=== PATIENT | female | born 1950 | race Caucasian/White ===

== ENCOUNTER → 2017-01-07 | Outpatient (CLI) | payer MEDICARE, OTHER ==
--- NOTE | 2017-01-08 12:43 | MM ---
Reason for exam: screening (asymptomatic). Last mammogram was performed 2 years and 1 month ago. History: Patient is postmenopausal. Excisional biopsy of the right breast, 2007. Benign US left CoreBiopsy of the left breast, October 05, 2004. Benign US right core biopsy of the right breast, October 05, 2004. Taking estrogen for 4 years beginning at age 57. Taking progesterone for 4 years beginning at age 57. Physical Findings: A clinical breast exam by your physician is recommended on an annual basis and results should be correlated with mammographic findings. MG 3D Screening Mammo W/Cad Bilateral CC and MLO view(s) were taken. Prior study comparison: December 19, 2014, bilateral MG screening mammo w CAD. December 07, 2013, bilateral MG screening mammo w CAD. The breast tissue is heterogeneously dense. This may lower the sensitivity of mammography. There is chronic nodularity bilaterally. There is no discrete abnormality. ASSESSMENT: Benign, BI-RAD 2 RECOMMENDATION: Routine screening mammogram of both breasts in 1 year.
== END | disposition home or self-care (01) ==
LOC: RADMAMWWP 07:09
PROVIDERS: ATTEND Obstetrics & Gynecology
DX: Z12.31 Encounter for screening mammogram for malignant neoplasm of breast (principal)
CPT/HCPCS: 77063; G0202

== ENCOUNTER → 2017-04-15 | Outpatient (CLI) | payer MEDICARE, OTHER ==
--- NOTE | 2017-04-15 16:30 | BD ---
EXAMINATION TYPE: MG DEXA axial skeleton. DATE OF EXAM: 04/15/2017 COMPARISON: 02/06/2015 CLINICAL HISTORY: 66-year-old female osteopenia Height: 63.5 IN Weight: 171 LBS FRAX RISK QUESTIONS: Alcohol (3 or more units per day): NO Family History (Parent hip fracture): YES MOTHER Glucocorticoids (More than 3mos): NO (Ex: prednisone, prednisolone, methylprednisolone, dexamethasone, and hydrocortisone). History of Fracture in Adulthood: NO Secondary Osteoporosis: 1. Type 1 Diabetes: NO 2. Hyperthyroidism: NO 3. Menopause before 45: NO AGE 48 4. Malnutrition: NO 5. Chronic liver disease: NO Rheumatoid Arthritis: NO Current Tobacco Use: NO RISK FACTORS HISTORY OF: Active: YES Diet low in dairy products/other sources of calcium: YES Postmenopausal woman: AGE 48 Take estrogen and/or progesterone medications: YES ESTRACE CREAM X 1 YEAR How long: ESTROGEN AGE 45 - 51 MEDICATIONS: Additional Medications: VIT D, BONE SUPPLEMENT CALLED NEW CHAPTER FOR BONE STRENGTH, ESTRACE, ELIQUIS , EXAM MEASUREMENTS: Bone mineral densitometry was performed using the Mood[employer] System. Bone mineral density as measured about the Lumbar spine is: ----- L1-L4(G/cm2): 0.979 T Score Values are as follows: ----- L2: -2.1 ----- L3: -1.4 ----- L4: -1.4 ----- L1-L4: -1.7 Bone mineral density has: Decreased -1.3% since study of: 02/06/2015 Bone mineral density about the R hip (g/cm2): 0.860 Bone mineral density about the L hip (g/cm2): 0.810 T Score values are as follows: -----R Neck: -1.3 -----L Neck: -1.6 -----R Total: -1.5 -----L Total: -1.2 Bone mineral density has: Decreased -3.8% since study of: 02/06/2015 IMPRESSION: Osteopenia (T Score between -2.5 and -1). There is slightly increased risk of fracture and the patient may be considered for treatment. Re-Screen 2-5 years. NOTE: T-SCORE=SD OF THE YOUNG ADULT MEAN.
== END | disposition home or self-care (01) ==
LOC: RADBDWWP 10:30
PROVIDERS: ATTEND Obstetrics & Gynecology
DX: M85.80 Other specified disorders of bone density and structure, unspecified site (principal)
CPT/HCPCS: 77080

== ENCOUNTER → 2018-02-06 | Outpatient (CLI) | payer MEDICARE, OTHER ==
--- NOTE | 2018-02-09 11:38 | MM ---
Reason for exam: screening (asymptomatic). Last mammogram was performed 1 year and 1 month ago. History: Patient is postmenopausal. Excisional biopsy of the right breast, 2007. Benign US left CoreBiopsy of the left breast, October 05, 2004. Benign US right core biopsy of the right breast, October 05, 2004. Taking estrogen for 4 years beginning at age 57. Taking progesterone for 4 years beginning at age 57. Physical Findings: A clinical breast exam by your physician is recommended on an annual basis and results should be correlated with mammographic findings. MG 3D Screening Mammo W/Cad Bilateral CC and MLO view(s) were taken. Prior study comparison: January 07, 2017, bilateral MG 3d screening mammo w/cad. December 19, 2014, bilateral MG screening mammo w CAD. The breast tissue is heterogeneously dense. This may lower the sensitivity of mammography. There is chronic nodularity bilaterally. There is no discrete abnormality. ASSESSMENT: Benign, BI-RAD 2 RECOMMENDATION: Routine screening mammogram of both breasts in 1 year.
== END ==
LOC: RADMAMWWP 12:27
PROVIDERS: ATTEND Obstetrics & Gynecology
DX: Z12.31 Encounter for screening mammogram for malignant neoplasm of breast (principal)
CPT/HCPCS: 77063; 77067

== ENCOUNTER → 2018-10-07 | Outpatient (CLI) | payer MEDICARE, OTHER ==
[2018-10-07 13:06] LABS: HCT 45.3 % (34.0-46.0); MCH 30.1 pg (25.0-35.0); MCHC 30.8 g/dL (31.0-37.0); MCV 97.6 fL (80.0-100.0); Mean Platelet Volume 7.3; Platelet Count 183 k/uL (150-450); RBC 4.64 m/uL (3.80-5.40); WBC 7.1 k/uL (3.8-10.6)
[2018-10-07 13:25] LABS: Potassium 4.7 mmol/L (3.5-5.1)
== END ==
LOC: LABPAT 12:23
PROVIDERS: ATTEND Internal Medicine Interventional Cardiology
DX: Z01.812 Encounter for preprocedural laboratory examination (principal); R06.02 Shortness of breath
CPT/HCPCS: 80051; 82565; 84520; 85027

== ENCOUNTER 2018-10-19 06:10 | Day surgery (SDC) | payer MEDICARE, OTHER ==
[2018-10-14 15:17] VITALS: BMI 30.1
[~2018-10-19 06:10] MED LIST: ALPRAZolam 0.25 MG TAB PO PRN; ALPRAZolam 0.5 MG TAB PO PRN; NITROGLYCERIN SL TABS 0.4 MG TAB SUBLINGUAL PRN; SODIUM CHLORIDE 0.9% 1,000 ML in EMPTY BAG 1 BAG IV ONE
[2018-10-19] MEDS ORDERED: ATORVASTATIN 80 MG TAB PO ONE (07:00)
[2018-10-19] MEDS ORDERED: ASPIRIN 325 MG TAB PO ONE (07:00)
[2018-10-19 07:18] VITALS: TEMP 97.7
[2018-10-19] MEDS: BENZOCAINE SPRAY 1 CAN MUCOUS MEM ONE ×3 (07:30→08:00)
[2018-10-19] MEDS: fentaNYL (PF) 50 MCG/ML 2 ML AMP IVP ONE ×2 (07:44→08:00)
[2018-10-19] MEDS: MIDAZOLAM (PF) 2 MG/2 ML VIAL IVP ONE ×2 (07:44→08:00)
[2018-10-19] MEDS ORDERED: MIDAZOLAM (PF) 2 MG/2 ML VIAL IVP ONE (08:08)
[2018-10-19] MEDS ORDERED: LIDOCAINE 1% INJ 10MG/ML (20 ML MDV) SQ ONE (08:26)
--- NOTE | 2018-10-19 08:40 | ECHOT ---
TRANSESOPHAGEAL ECHOCARDIOGRAM DATE OF SERVICE: October 19, 2018 PERFORMING PHYSICIAN: Aniceto Mack MD PROCEDURE PERFORMED: Transesophageal echocardiogram. INDICATION: Valvular heart disease. COMPLICATION: None. LEVEL OF SEDATION: Moderate with sedation length of 15 minutes. PROCEDURE DESCRIPTION: After obtaining an informed consent, explaining the procedure, benefits, risks, complications and alternatives, the patient was brought to the transesophageal echocardiogram suite. A pulse oximetry and heart rate monitors were attached to the patient prior to the procedure. The patient's throat was sprayed using lidocaine locally. Following that, the patient was turned into left lateral position. A bite guard was placed and the patient was then sedated with the above doses of Versed and fentanyl in divided doses. Following that, the transesophageal echocardiogram probe was advanced through the bite guard into the mid esophagus where 2-D echocardiogram images as well as color Doppler images of various cardiac structures were obtained. We evaluated the interatrial septum using 2-D echocardiogram, color Doppler, and contrast study. The procedure was completed. There were no complications. FINDINGS: Left ventricular dimension and systolic function appeared to be within normal limits. The ejection fraction appeared to be in the range of 55%. The right ventricle appeared to be mildly dilated. The interatrial septum appeared to have what seems to be patent foramen ovale with evidence of [id number] shunt by contrast study as well as by color Doppler. The aortic valve is trileaflet valve without stenosis with moderate insufficiency. The mitral valve seems to be mildly thickened with moderate MR. There was moderate tricuspid regurgitation seen. The left atrial appendage appeared to be free from any thrombus. CONCLUSION: 1. Patent foramen ovale with evidence of [id number] shunt. 2. Intact left atrial appendage without any evidence of thrombus. 3. Normal left ventricular dimension and systolic function. 4. Trileaflet aortic valve without stenosis with moderate insufficiency. 5. Thickened mitral valve leaflets with moderate mitral regurgitation. 6. Moderate tricuspid regurgitation seen. 7. Mildly dilated aortic root. 8. No evidence of pericardial effusion. MMODL / IJN: [id number] /
[2018-10-19] MEDS ORDERED: RX INFO: IV CONTRAST WAS GIVEN 1 EACH MISC MISCELLANE PRN (08:45)
[2018-10-19] MEDS ORDERED: SODIUM CHLORIDE 0.9% 1,000 ML IV SCH (08:45)
[2018-10-19] MEDS ORDERED: IOPAMIDOL-370 100ML BTL INJ ONE (08:52)
--- NOTE | 2018-10-19 09:13 | CC ---
CARDIAC CATHETERIZATION REPORT DATE OF SERVICE: October 19, 2018 PERFORMING PHYSICIAN: Aniceto Mack MD, [employer] ax consultant. PROCEDURE PERFORMED: 1. Right heart catheterization. 2. Left heart catheterization. 3. Selective right and left coronary angiogram. INDICATION: This is a 67-year-old female patient who continues to have shortness of breath with exertion quite concerning for severe underlying coronary artery disease as well as pulmonary hypertension. APPROACH: Right common femoral artery and right common femoral vein. COMPLICATION: None. LEVEL OF SEDATION: Moderate with sedation length of 20 minutes. PROCEDURE DESCRIPTION: After obtaining informed consent, the patient was brought to the cardiac laborer dairy farm. The right common femoral vein was cannulated using micropuncture technique. Then I placed an 8-Latvian sheath. After that, the right common femoral artery was cannulated using micropuncture technique. Then I placed a 6-Latvian sheath. I did right heart catheterization using 6-Latvian swan catheter. After that left heart catheterization was performed using 6-Latvian pigtail catheter. Selective right and left coronary angiogram were performed using JR4 and JL4 catheter. The procedure was completed without any complication. HEMODYNAMICS: 1. Pulmonary capillary wedge pressure was 11 mmHg. 2. PA pressures were as follows, systolic 23, diastolic 16 and mean of 19 mmHg. 3. RV pressures were as follows, systolic 22 and end-diastolic of 10 mmHg. 4. RA pressure is 10 mmHg. 5. LVEDP was 18 mmHg. SELECTIVE CORONARY ANGIOGRAM: 1. Left main is angiographically normal. It bifurcates into the left circumflex and left anterior descending artery. 2. The left anterior descending artery has mild disease only. In the midportion, it gives rise into a large diagonal branch. 3. The left circumflex is a large caliber vessel. It is a nondominant vessel and appeared to be angiographically normal. 4. The RCA is a large caliber vessel. It is a dominant vessel with mild disease only. CONCLUSION: 1. Normal right heart pressures. 2. Mild nonobstructive disease involving the right and left coronary system. POSTPROCEDURE MANAGEMENT: 1. Medical treatment. 2. Follow up with the patient. MMODL / IJN: [id number] /
[2018-10-19 19:27] VITALS: RESP 18
[2018-10-19 19:30] VITALS: BP 140/67; PULSE 57
== END 2018-10-19 14:25 | disposition home or self-care (01) ==
LOC: CATHCVL 06:10
PROVIDERS: ATTEND Internal Medicine Interventional Cardiology
DX: I08.3 Combined rheumatic disorders of mitral, aortic and tricuspid valves (principal); Q21.1 Atrial septal defect; I25.10 Atherosclerotic heart disease of native coronary artery without angina pectoris; I42.8 Other cardiomyopathies; I73.9 Peripheral vascular disease, unspecified; I77.810 Thoracic aortic ectasia; D68.51 Activated protein C resistance; E78.5 Hyperlipidemia, unspecified; I82.403 Acute embolism and thrombosis of unspecified deep veins of lower extremity, bilateral; E78.00 Pure hypercholesterolemia, unspecified; R41.3 Other amnesia; Z79.01 Long term (current) use of anticoagulants; Z79.899 Other long term (current) drug therapy; Z88.0 Allergy status to penicillin; Z88.2 Allergy status to sulfonamides; Z82.49 Family history of ischemic heart disease and other diseases of the circulatory system
CPT/HCPCS: 93312; 93320; 93325; 93460; C1760; C1769 ×3; C1894 ×2; J2001; J3010; Q9967; J2250

== ENCOUNTER → 2018-10-28 | Outpatient (CLI) | payer MEDICARE, OTHER ==
[2018-10-28 13:51] LABS: HCT 42.1 % (34.0-46.0); HGB 13.8 gm/dL (11.4-16.0); MCHC 32.8 g/dL (31.0-37.0); MCV 94.5 fL (80.0-100.0); Mean Platelet Volume 6.9; Platelet Count 212 k/uL (150-450); RBC 4.46 m/uL (3.80-5.40); RDW 13.5 % (11.5-15.5)
[2018-10-28 14:14] LABS: Potassium 4.4 mmol/L (3.5-5.1)
== END | disposition home or self-care (01) ==
LOC: LABPAT 12:49
PROVIDERS: ATTEND Internal Medicine Interventional Cardiology
DX: Z01.812 Encounter for preprocedural laboratory examination (principal); I25.10 Atherosclerotic heart disease of native coronary artery without angina pectoris
CPT/HCPCS: 36415; 80051; 82565; 84520; 85027

== ENCOUNTER 2018-11-15 20:50 | Emergency (ER) | payer MEDICARE, OTHER ==
--- NOTE | 2018-11-15 21:14 | ED ---
Skin/Abscess/FB HPI - General Chief complaint: Skin/Abscess/Foreign Body Stated complaint: FB throat Time Seen by Provider: 11/15/18 20:57 Source: patient Mode of arrival: ambulatory Limitations: no limitations - History of Present Illness Initial comments: 67-year-old female presented for foreign body sensation in throat x 9 hours. Patient states she ate pork turkey and squash around noon today she states that since she is feeling that the prudent back all the way down she states she experienced this sensation after eating meat approximately 8 months and was supposed to have outpatient EGD and further evaluation performed by Dr. Nichols however needed medical clearance from cardiology. Patient states hasnt received surgical clearance. Patient states that after eating the meat, she had difficulty swallowing liquids, denies coughing. States she could feel food in throat. Patient states this persisted for the afternoon and she was spitting up thick phlegm until she pulled in the ER parking lot and she began to feel better. She denies CP, sharp sensation, bone ingestion, SOB, fevers, hemoptysis, bloody vomit or abdominal pain, headache, slurred speech, weakness of UE/LE, diplopia or visual changes, sensation deficits or any other complaints on ROS. Upon history taking patient is tolerating oral secretions, said to be spitting phlegm up in triage. - Related Data Home Medications Medication Instructions Recorded Confirmed Alendronate Sodium [Fosamax] 70 mg PO WEEKLY 10/14/18 11/03/18 Apixaban [Eliquis] 5 mg PO BID 10/14/18 11/03/18 Cholecalciferol (Vitamin D3) 2,000 unit PO DAILY 10/14/18 11/03/18 [Vitamin D3] Metoprolol Shelton/Hydrochlorothiaz 0.5 tab PO BID 10/14/18 11/03/18 [Metoprolol ER-Hctz 25-12.5 mg] Natroal Melatonin 1 tab PO HS PRN 10/14/18 11/03/18 Pravastatin Sodium [Pravachol] 20 mg PO HS 10/14/18 11/03/18 Azithromycin [Zithromax Z-pack] 1 tab PO DIRECTED 11/03/18 11/03/18 Nitrofurantoin Monohyd/M-Cryst 100 mg PO Q12HR 11/09/18 11/09/18 [Macrobid] Allergies Allergy/AdvReac Type Severity Reaction Status Date / Time Penicillins Allergy Dyspnea Verified 11/15/18 20:56 Sulfa (Sulfonamide Allergy Nausea & Verified 11/15/18 20:56 Antibiotics) Vomiting Review of Systems ROS Statement: Those systems with pertinent positive or pertinent negative responses have been documented in the HPI. ROS Other: All systems not noted in ROS Statement are negative. Past Medical History Past Medical History: Blood Disorder, Deep Vein Thrombosis (DVT), Hyperlipidemia Additional Past Medical History / Comment(s): leaky heart valve, states she has one the factor V, recent virus completing z-pac History of Any Multi-Drug Resistant Organisms: None Reported Past Surgical History: Bowel Resection, Joint Replacement Additional Past Surgical History / Comment(s): Rt knee, had a temporary colostomy but it was reversed, nasal surgery Past Anesthesia/Blood Transfusion Reactions: No Reported Reaction Past Psychological History: Anxiety Smoking Status: Never smoker Past Alcohol Use History: Occasional Past Drug Use History: None Reported - Past Family History Brother(s) Family Medical History: Cancer General Exam - General Exam Comments Initial Comments: General: The patient is awake and alert, in no distress, and does not appear acutely ill. Eye: +3 mm pupils are equal, round and reactive to light, extra-ocular movements are intact. No nystagmus. There is normal conjunctiva bilaterally. No signs of icterus. Ears, nose, mouth and throat: There are moist mucous membranes and no oral lesions. Tolerating oral secretions. No tripoding Neck: The neck is supple, there is no tenderness or JVD. Cardiovascular: There is a regular rate and rhythm. No murmur, rub or gallop is appreciated. Respiratory: Lungs are clear to auscultation, respirations are non-labored, breath sounds are equal. No wheezes, stridor, rales, or rhonchi. Gastrointestinal: Soft, non-distended, non-tender abdomen without masses or organomegaly noted. There is no rebound or guarding present. Musculoskeletal: Normal ROM, no tenderness. Strength 5/5. Sensation intact. Riadial pulses equal bilaterally 2+. Neurological: A&O x 3. CN II-XII intact, There are no obvious motor or sensory deficits. Coordination appears grossly intact. Speech is normal. Skin: Skin is warm and dry and no rashes or lesions are noted. Psychiatric: Cooperative, appropriate mood & affect, normal judgment. Limitations: no limitations Course Vital Signs 11/15/18 20:51 Temperature 98.1 F Pulse Rate 62 Respiratory 16 Rate Blood Pressure 148/89 O2 Sat by Pulse 97 Oximetry Medical Decision Making - Medical Decision Making Well-appearing 67-year-old female presented for possible food bolus. Patient's foreign body sensation after eating meat. Patient has experienced this before and is supposed to follow up with general surgery. Patient states she believes she is surgically cleared however needs to confirm this with her middle school counselor Dr. Li. Patient states after she pulled into the emergency department she began to feel better. Patient was provided a carbonated beverage was able to tolerate a full 8 ounces, without any regurgitation or difficulty swallowing. Chest x-ray revealed no acute abnormalities no pneumomediastinum or other abnormal findings. Patient shows no signs of distress tolerating oral secretions, no difficulty swallowing upon reevaluation. I discussed the case in detail with Dr. Hatfield she is agreeable at this time with discharge and general surgical consultation outpatient. Patient was discharged appearing well. - Lab Data Result diagrams: 11/15/18 21:39 11/15/18 21:39 Lab Results 11/15/18 11/15/18 Range/Units 21:39 21:39 WBC 8.4 (3.8-10.6) k/uL RBC 4.64 (3.80-5.40) m/uL Hgb 13.1 (11.4-16.0) gm/dL Hct 43.7 (34.0-46.0) % MCV 94.3 (80.0-100.0) fL MCH 28.1 (25.0-35.0) pg MCHC 29.8 L (31.0-37.0) g/dL RDW 13.7 (11.5-15.5) % Plt Count 183 (150-450) k/uL Neutrophils % 71 % Lymphocytes % 16 % Monocytes % 6 % Eosinophils % 4 % Basophils % 1 % Neutrophils # 6.0 (1.3-7.7) k/uL Lymphocytes # 1.3 (1.0-4.8) k/uL Monocytes # 0.5 (0-1.0) k/uL Eosinophils # 0.3 (0-0.7) k/uL Basophils # 0.1 (0-0.2) k/uL Sodium 140 (137-145) mmol/L Potassium 4.7 (3.5-5.1) mmol/L Chloride 106 (98-107) mmol/L Carbon Dioxide 24 (22-30) mmol/L Anion Gap 10 mmol/L BUN 20 H (7-17) mg/dL Creatinine 0.86 (0.52-1.04) mg/dL Est GFR (CKD-EPI)AfAm 80 (>60 ml/min/1.73 sqM) Est GFR (CKD-EPI)NonAf 70 (>60 ml/min/1.73 sqM) Glucose 102 H (74-99) mg/dL Calcium 10.1 (8.4-10.2) mg/dL Total Bilirubin 1.0 (0.2-1.3) mg/dL AST 27 (14-36) U/L ALT 21 (9-52) U/L Alkaline Phosphatase 69 (38-126) U/L Total Protein 7.6 (6.3-8.2) g/dL Albumin 4.7 (3.5-5.0) g/dL Disposition Clinical Impression: Foreign body sensation in throat Disposition: HOME SELF-CARE Condition: Good Instructions (If sedation given, give patient instructions): Esophageal Foreign Body (ED) Additional Instructions: Please use medication as discussed. Please follow-up with your surgeon in the next 2-3 days. Please return to emergency room if the symptoms increase or worsen or for any other concerns0- inability to swallow, chest pain, inability to tolerate oral secretions (spit).. Is patient prescribed a controlled substance at d/c from ED?: No Referrals: Michael Dorman MD [Primary Care Provider] - 1-2 days Joanne Nichols MD [STAFF PHYSICIAN] - 1-2 days Time of Disposition: 22:52
--- NOTE | 2018-11-15 21:34 | XR ---
EXAMINATION TYPE: XR chest 2V DATE OF EXAM: 11/15/2018 COMPARISON: NONE HISTORY: Food stuck in throat. TECHNIQUE: Frontal and lateral views of the chest are obtained. FINDINGS: There is no heart failure nor confluent pneumonic infiltrate. There is minimal atelectasis at the lung bases. Heart size is normal. Bony thorax is intact. There is osteopenia. IMPRESSION: Lower lobe subsegmental atelectasis. Normal heart.
[2018-11-15 22:02] LABS: Basophils # (A) 0.1 k/uL (0-0.2); Basophils % (A) 1 %; Eosinophils # (A) 0.3 k/uL (0-0.7); Eosinophils % (A) 4 %; HCT 43.7 % (34.0-46.0); HGB 13.1 gm/dL (11.4-16.0); Lymphocytes # (A) 1.3 k/uL (1.0-4.8); Lymphocytes % (A) 16 %; MCH 28.1 pg (25.0-35.0); MCHC 29.8 g/dL (31.0-37.0); MCV 94.3 fL (80.0-100.0); Monocytes # (A) 0.5 k/uL (0-1.0); Monocytes % (A) 6 %; Neutrophils % (A) 71 %; Platelet Count 183 k/uL (150-450); RBC 4.64 m/uL (3.80-5.40); RDW 13.7 % (11.5-15.5); WBC 8.4 k/uL (3.8-10.6)
[2018-11-15 22:14] LABS: Albumin 4.7 g/dL (3.5-5.0); Calcium 10.1 mg/dL (8.4-10.2); Potassium 4.7 mmol/L (3.5-5.1); Total Protein 7.6 g/dL (6.3-8.2)
[2018-11-16 08:50] VITALS: BP 125/93; PULSE 73; RESP 18; TEMP 97.8
== END 2018-11-16 00:07 | disposition home or self-care (01) ==
LOC: EC 20:50
DX: R09.89 Other specified symptoms and signs involving the circulatory and respiratory systems (principal); I38 Endocarditis, valve unspecified; F41.9 Anxiety disorder, unspecified; E78.5 Hyperlipidemia, unspecified; Z79.01 Long term (current) use of anticoagulants; Z79.899 Other long term (current) drug therapy; Z88.0 Allergy status to penicillin; Z88.2 Allergy status to sulfonamides; Z86.718 Personal history of other venous thrombosis and embolism; Z96.651 Presence of right artificial knee joint; Z93.3 Colostomy status
CPT/HCPCS: 36415; 71046; 80053; 85025; 99283

== ENCOUNTER → 2018-12-10 | Outpatient (CLI) | payer MEDICARE, OTHER ==
[2018-12-10 17:38] LABS: HCT 41.9 % (34.0-46.0); HGB 13.8 gm/dL (11.4-16.0); MCH 31.7 pg (25.0-35.0); MCV 95.9 fL (80.0-100.0); Mean Platelet Volume 6.6; Platelet Count 217 k/uL (150-450); RBC 4.37 m/uL (3.80-5.40); RDW 13.4 % (11.5-15.5); WBC 8.5 k/uL (3.8-10.6)
[2018-12-10 17:44] LABS: Potassium 4.8 mmol/L (3.5-5.1)
== END | disposition home or self-care (01) ==
LOC: LABPAT 16:24
PROVIDERS: ATTEND Internal Medicine Interventional Cardiology
DX: Z01.812 Encounter for preprocedural laboratory examination (principal); I34.0 Nonrheumatic mitral (valve) insufficiency
CPT/HCPCS: 80051; 80061; 82565; 84520; 85027

== ENCOUNTER 2018-12-18 09:25 | Day surgery (SDC) | payer MEDICARE, OTHER ==
[~2018-12-18 09:25] MED LIST changes: +ASPIRIN 325 MG TAB PO STA; +ATORVASTATIN 80 MG TAB PO STA; +CLINDAMYCIN 300 MG in DEXTROSE 5% IN WATER 50 ML IVPB ONE
[2018-12-18] MEDS ORDERED: LIDOCAINE 1% INJ 10MG/ML (20 ML MDV) ONE (11:42)
[2018-12-18] MEDS ORDERED: MIDAZOLAM 2 MG/2 ML VIAL IV ONE ×2 (12:05→12:31)
[2018-12-18] MEDS ORDERED: LIDOCAINE 1% INJ 10MG/ML (20 ML MDV) SQ ONE (12:06)
[2018-12-18] MEDS ORDERED: fentaNYL (PF) 50 MCG/ML 2 ML AMP ONE (12:14)
[2018-12-18] MEDS ORDERED: fentaNYL (PF) 50 MCG/ML 2 ML AMP IV ONE ×2 (12:16)
[2018-12-18] MEDS ORDERED: HEPARIN SODIUM 1,000 UN/ML (10ML VL) ONE (12:19)
[2018-12-18] MEDS ORDERED: HEPARIN SODIUM 1,000 UN/ML (10ML VL) IV ONE (12:20)
[2018-12-18] MEDS ORDERED: IOPAMIDOL-370 50ML BTL INJ ONE (12:44)
--- NOTE | 2018-12-18 13:58 | P.PCN ---
Date of Procedure: 12/18/18 Operative Findings: PATENT FORAMEN OVALE (PFO) CLOSURE PROCEDURE Performing physician Aniceto Mack M.D. Procedure performed 1. Intracardiac echocardiogram imaging 2. Successful percutaneous closure of patent foramen ovale using 25 mm Amplatzer PFO occluder with an excellent results and without any residual shunt 3. Right atrial angiogram Indication This is a pleasant 68-year-old female patient with known history of factor V Leiden with multiple DVT as well as possible TIA/CVA in the past was found recently to have a patent foramen ovale with bidirectional shunt. The patient would like to be a full to be closed and because of that she was scheduled today to undergo the procedure. Complication None Level of sedation Moderate sedation of 46 minutes Approach Right femoral vein Procedure description After obtaining an informed consent the patient was brought to the cardiac research laboratory specialist. The right common femoral vein was cannulated 2 using micropuncture needle, the micropuncture wire passed easily then I placed two 8-Danish sheath in the right common femoral vein. At that point anticoagulation was initiated using heparin and the patient was given a weight-based heparin with ACT monitoring. Subsequently the intracardiac echocardiogram probe was advanced through the venous sheath under fluoroscopy guidance to the right atrium were I did interrogation of the interatrial septum with multiple views using 2-D echocardiogram images as well as color Doppler images. We identified the patent foramen ovale and we decided to pursue with an Amplatzer PFO without 25 mm. Subsequently the PFO was crossed using an 035 wire which was advanced to the left upper pulmonary vein. Subsequently I did exchange the wire into a stiff wire using 035 multipurpose catheter. At that point I did exchange my short 11 cm 8-Danish sheath into the delivery sheath which was crossed the interatrial septum under fluoroscopy guidance as well as under intracardiac echocardiogram images. After that the dilator and the wire were removed. Subsequently advanced 25 mm Amplatzer PFO occluder which was loaded into the sheath under continuous saline injection to make sure there is no bubble. The device was advanced all the way under fluoroscopy guidance where initially I deployed the left atrial occluder and subsequently I pulled back against the interatrial septum then I deployed the right atrial occluder. After making sure that the device position was good and there is no pinch on the SVC I decided to release the device. Subsequently I released the device under fluoroscopy guidance. I interrogated the device again which showed no residual shunt under color flow with intracardiac echocardiogram. After that I did do right atrial angiogram with the IRISH cranial view. Subsequently I did exchange the long delivery sheath into short sheath. The procedure was completed without any complications Plan An echocardiogram later on today and tomorrow Dual antiplatelet therapy Risk factors modifications Follow-up with the patient
[2018-12-18] MEDS ORDERED: SODIUM CHLORIDE 0.9% 1,000 ML IV SCH (14:00)
[2018-12-18 15:16] VITALS: RESP 16
[2018-12-19 04:33] VITALS: TEMP 98.1
[2018-12-19 06:36] LABS: Basophils # (A) 0.1 k/uL (0-0.2); Basophils % (A) 2 %; Eosinophils # (A) 0.3 k/uL (0-0.7); Eosinophils % (A) 6 %; HCT 41.1 % (34.0-46.0); HGB 13.2 gm/dL (11.4-16.0); Lymphocytes % (A) 16 %; MCH 30.7 pg (25.0-35.0); MCHC 32.2 g/dL (31.0-37.0); MCV 95.5 fL (80.0-100.0); Mean Platelet Volume 6.6; Monocytes # (A) 0.5 k/uL (0-1.0); Monocytes % (A) 8 %; Neutrophils # (A) 4.1 k/uL (1.3-7.7); Neutrophils % (A) 66 %; Platelet Count 167 k/uL (150-450); RDW 13.2 % (11.5-15.5); WBC 6.2 k/uL (3.8-10.6)
--- NOTE | 2018-12-19 06:44 | XR ---
EXAMINATION TYPE: XR chest 2V DATE OF EXAM: 12/19/2018 HISTORY: ASD/PFO placement. REFERENCE: Previous study dated 11/15/2018. FINDINGS: Lung volumes are prominent. Heart size upper limits of normal. There is some scarring or at electasis at the left lung base. There are metallic leads projecting over the lower dorsal spine. Ple ural spaces are clear. IMPRESSION: 1. LEADS PROJECT OVER THE T9 VERTEBRAL BODY. 2. SCARRING VERSUS ATELECTASIS, LEFT LUNG BASE. 3. COPD.
[2018-12-19 06:46] LABS: African American GFR (CKD) >90 (>60 ml/min/1.73 sqM); Anion Gap 3 mmol/L; Blood Urea Nitrogen 12 mg/dL (7-17); Calcium 9.2 mg/dL (8.4-10.2); Carbon Dioxide 26 mmol/L (22-30); Chloride 108 mmol/L (98-107); Glucose 88 mg/dL (74-99); Potassium 4.6 mmol/L (3.5-5.1); Sodium 137 mmol/L (137-145)
[2018-12-19 08:09] VITALS: BP 122/82; PULSE 64
[2018-12-19] MEDS ORDERED: ASPIRIN 325 MG TAB PO SCH (09:00)
[2018-12-19] MEDS ORDERED: CLOPIDOGREL 75 MG TAB PO SCH (09:00)
--- NOTE | 2018-12-19 09:09 | P.DS ---
Providers Date of admission: December 182018 Attending physician: Aniceto Mack Primary care physician: Michael Angulo [facility] Course: This is a pleasant 69-year-old female patient with history of factor V Leiden currently she is on oral anticoagulation was found to have patent foramen ovale on recent echocardiogram. She underwent yesterday successful percutaneous closure of patent foramen ovale using 25 mm Amplatzer PFO occluder with an excellent results by the end and without any residual shunt. On follow-up with her today, she is doing good and she is asymptomatic. The right groin is soft and nontender and without any bruises. The patient is going to be discharged on low-dose Eliquis along with small dose aspirin along with Plavix 75 mg by mouth daily. She will be on Plavix for only 4 weeks and then she will be on aspirin for only 6 months. I will follow-up with the patient next week in the office with an echocardiogram. Plan - Discharge Summary Discharge Rx Participant: No New Discharge Prescriptions: New Clopidogrel [Plavix] 75 mg PO DAILY #90 tab Aspirin 81 mg PO DAILY #90 tab Continue Metoprolol Shelton/Hydrochlorothiaz [Metoprolol ER-Hctz 25-12.5 mg] 0.5 tab PO BID Cholecalciferol (Vitamin D3) [Vitamin D3] 2,000 unit PO DAILY Pravastatin Sodium [Pravachol] 20 mg PO HS Natroal Melatonin 1 tab PO HS PRN PRN Reason: Insomnia Cetirizine HCl [Zyrtec] 10 mg PO DAILY PRN PRN Reason: Allergy Symptoms Acetaminophen [Tylenol] 325 - 650 mg PO Q6H PRN PRN Reason: Pain Changed Apixaban [Eliquis] 2.5 mg PO BID #0 Discharge Medication List Cholecalciferol (Vitamin D3) [Vitamin D3] 2,000 unit PO DAILY 10/14/18 [History] Metoprolol Shelton/Hydrochlorothiaz [Metoprolol ER-Hctz 25-12.5 mg] 0.5 tab PO BID 10/14/18 [History] Natroal Melatonin 1 tab PO HS PRN 10/14/18 [History] Pravastatin Sodium [Pravachol] 20 mg PO HS 10/14/18 [History] Acetaminophen [Tylenol] 325 - 650 mg PO Q6H PRN 12/14/18 [History] Cetirizine HCl [Zyrtec] 10 mg PO DAILY PRN 12/14/18 [History] Clopidogrel [Plavix] 75 mg PO DAILY #90 tab 12/18/18 [Rx] Apixaban [Eliquis] 2.5 mg PO BID #0 12/19/18 [Rx] Aspirin 81 mg PO DAILY #90 tab 12/19/18 [Rx] Follow up Appointment(s)/Referral(s): Aniceto Mack MD [STAFF PHYSICIAN] - 12/25/18 4:15 pm (1 Week Visit: 12/25 at 4:15pm 1 Month Visit: 01/19 at 2:45pm 6 Month Visit: 06/20 at 1:45pm 1 Year Visit: 12/19 at 1:30pm) Patient Instructions/Handouts: Transcatheter Closure of Patent Ductus Arteriosus in Children (DC)
--- NOTE | 2018-12-20 12:39 | ECHOF ---
Referral Reason:Post ASD/PFO Insertion MEASUREMENTS -------- HEIGHT: 160.0 cm WEIGHT: 78.0 kg BP: RVIDd: 3.7 cm (< 3.3) IVSd: 1.0 cm (0.6 - 1.1) LVIDd: 3.8 cm (3.9 - 5.3) LVPWd: 1.0 cm (0.6 - 1.1) IVSs: 1.4 cm LVIDs: 2.7 cm LVPWs: 1.3 cm LA Diam: 2.8 cm (2.7 - 3.8) LAESV Index (A-L): 16.78 ml/m Ao Diam: 3.0 cm (2.0 - 3.7) AV Cusp: 2.0 cm (1.5 - 2.6) LA Diam: 3.2 cm (2.7 - 3.8) MV EXCURSION: 18.395 mm (> 18.000) MV EF SLOPE: 65 mm/s (70 - 150) EPSS: 0.3 cm MV E Alberto: 0.56 m/s MV DecT: 205 ms MV A Alberto: 0.69 m/s MV E/A Ratio: 0.82 AR PHT: 570 ms RAP: 5.00 mmHg RVSP: 35.43 mmHg FINDINGS -------- Sinus rhythm. This was a technically good study. LV size, wall thickness and systolic function are normal, with an EF greater than 55%. The left marcy tricular size is normal. The right ventricle is normal in size. The left atrial size is normal. The right atrial size is normal. Pt had PFO closure 12/18/18. There is mild aortic valve sclerosis. There is mild aortic regurgitation. Mild mitral annular calcification present. Mild mitral regurgitation is present. No regurgitation noted Right ventricular systolic pressure is normal at < 35 mmHg. There is mild pulmonary hypertension. There is no pulmonic regurgitation present. The aortic root size is normal. There is no pericardial effusion. CONCLUSIONS -------- 1. Sinus rhythm. 2. This was a technically good study. 3. LV size, wall thickness and systolic function are normal, with an EF greater than 55%. 4. The left ventricular size is normal. 5. The right ventricle is normal in size. 6. The left atrial size is normal. 7. The right atrial size is normal. 8. Pt had PFO closure 12/18/18. 9. There is mild aortic valve sclerosis. 10. Mild mitral annular calcification present. 11. Mild mitral regurgitation is present. 12. No regurgitation noted 13. Right ventricular systolic pressure is normal at < 35 mmHg. 14. There is mild pulmonary hypertension. 15. There is no pulmonic regurgitation present. 16. The aortic root size is normal. 17. There is no pericardial effusion. RN X RAY: Parvin Askew RDCS
== END 2018-12-19 11:47 | disposition home or self-care (01) ==
LOC: CATHCVL 09:25 → 3SCARD 17:12 → CATHCVL 12-19 11:47
PROVIDERS: ATTEND Internal Medicine Interventional Cardiology
DX: Q21.1 Atrial septal defect (principal); I73.9 Peripheral vascular disease, unspecified; D68.51 Activated protein C resistance; Z86.718 Personal history of other venous thrombosis and embolism; I08.0 Rheumatic disorders of both mitral and aortic valves; Z79.01 Long term (current) use of anticoagulants; Z79.899 Other long term (current) drug therapy; Z88.2 Allergy status to sulfonamides
CPT/HCPCS: 93306; 93581; 93662; 85347; 86900; 86901; 80048; 85025; 86850; 71046; C1769 ×6; C1894; C1817; C1759; J2250; J2001; J3010; J1644; Q9967; 93580

== ENCOUNTER → 2019-03-18 | Day surgery (SDC) | payer MEDICARE, OTHER ==
--- NOTE | 2019-03-17 17:51 | P.GSHP ---
History of Present Illness H&P Date: 03/18/19 CHIEF COMPLAINT: GERD HISTORY OF PRESENT ILLNESS: The patient is a 68-year-old female who presents reports gastroesophageal reflux disease. Upper endoscopy was offered for further evaluation and management. PAST MEDICAL HISTORY: Please see list. PAST SURGICAL HISTORY: Please see list. MEDICATIONS: Please see list. ALLERGIES: Please see list. SOCIAL HISTORY: No illicit drug use FAMILY HISTORY: No reports of Crohn disease or ulcerative colitis. REVIEW OF ORGAN SYSTEMS: CONSTITUTIONAL: No reports of fevers or chills. GI: Denies any blood in stools or constipation. PHYSICAL EXAM: VITAL SIGNS: Stable GENERAL: Well-developed and pleasant in no acute distress. HEENT: No scleral icterus. Extraocular movements grossly intact. Moist buccal mucosa. NECK: Supple without lymphadenopathy. CHEST: Unlabored respirations. Equal bilateral excursions. CARDIOVASCULAR: Regular rate and rhythm. Distal 2+ pulses. ABDOMEN: Soft, nondistended. MUSCULOSKELETAL: No clubbing, cyanosis, or edema. ASSESSMENT: 1. Gastroesophageal reflux disease PLAN: 1. Recommend proceeding with an upper endoscopy Past Medical History Past Medical History: Blood Disorder, Deep Vein Thrombosis (DVT), Hyperlipidemia Additional Past Medical History / Comment(s): states having occasional difficulty swallowing, states does not have HTN, states leaky heart valve, states she has one ? gene of the factor V. History of Any Multi-Drug Resistant Organisms: None Reported Past Surgical History: Bowel Resection, Heart Catheterization, Joint Replacement Additional Past Surgical History / Comment(s): HEART CATH IN OCT 2018. RIGHT TOTAL KNEE had a temporary colostomy but it was reversed, nasal surgery, PFO by Dr Rueda 12/18/18 Past Anesthesia/Blood Transfusion Reactions: No Reported Reaction Smoking Status: Never smoker - Past Family History Brother(s) Family Medical History: Cancer Medications and Allergies Home Medications Medication Instructions Recorded Confirmed Type Cholecalciferol (Vitamin D3) 2,000 unit PO DAILY 10/14/18 03/16/19 History [Vitamin D3] Natroal Melatonin 1 tab PO HS PRN 10/14/18 03/16/19 History Pravastatin Sodium [Pravachol] 20 mg PO HS 10/14/18 03/16/19 History Cetirizine HCl [Zyrtec] 10 mg PO DAILY PRN 12/14/18 03/16/19 History Apixaban [Eliquis] 2.5 mg PO BID #0 12/19/18 03/16/19 Rx Aspirin 81 mg PO DAILY #90 tab 12/19/18 03/16/19 Rx Hydrochlorothiazide 0.5 tab PO BID 03/16/19 03/16/19 History Metoprolol Succinate [Toprol XL] 0.5 tab PO BID 03/16/19 03/16/19 History Allergies Allergy/AdvReac Type Severity Reaction Status Date / Time Penicillins Allergy Dyspnea Verified 03/16/19 11:42 Sulfa (Sulfonamide AdvReac Nausea & Verified 03/16/19 11:42 Antibiotics) Vomiting
[~2019-03-18] MED LIST changes: -ALPRAZolam 0.25 MG TAB PO PRN; -ALPRAZolam 0.5 MG TAB PO PRN; -ASPIRIN 325 MG TAB PO STA; -ATORVASTATIN 80 MG TAB PO STA; -CLINDAMYCIN 300 MG in DEXTROSE 5% IN WATER 50 ML IVPB ONE; +LACTATED RINGERS 1,000 ML IV SCH; +LIDOCAINE 1% 20 ML VIAL (10MG/ML) FOR IV START INTRADERMA PRN; +LIDOCAINE 1% INJ 10MG/ML (20 ML MDV) ONE; -NITROGLYCERIN SL TABS 0.4 MG TAB SUBLINGUAL PRN; +PROPOFOL 10 MG/ML 20 ML VIAL IV ONE; -SODIUM CHLORIDE 0.9% 1,000 ML in EMPTY BAG 1 BAG IV ONE
[2019-03-18 08:58] VITALS: RESP 16; TEMP 97.4
--- NOTE | 2019-03-18 09:48 | P.PCN ---
Date of Procedure: 03/18/19 Description of Procedure: PREOPERATIVE DIAGNOSIS: Gastroesophageal reflux disease. Dysphagia POSTOPERATIVE DIAGNOSIS: Gastroesophageal reflux disease. Diaphragmatic hiatal hernia Esophageal stricture, distal esophagus. Dysphagia Gastritis OPERATION: Esophagogastroduodenoscopy with ballon esophageal dilation, 15 mm Esophagogastroduodenoscopy with biopsies along antrum SURGEON: Joanne Nichols MD ANESTHESIA: MAC. INDICATIONS: The patient is a 68-year-old male who presents with a history of reflux disease and dysphagia. Benefits and risks of the procedure were described. Informed consent was obtained. DESCRIPTION: The patient was brought into the endoscopy suite and laid in the left lateral decubitus position. A Olympus gastroscope was carefully passed along the posGastric polyps were found. The scope was passed to the duodenum which was unremarkable up to the third portion. Retroflexion of the scope confirmed Hill grade 4 lower esophageal valve with a Hill grade 4, lower esophageal valve identified. Cold forceps biopsies were obtained along antrum for gastritis. A 6 cm hiatal hernia was confirmed. LA grade C erosive esophagitis was found. A [employer] 15 mm balloon was inserted along the scope into the distal esophagus where a tight stricture 9 mm was identified. Balloon was dilated for up to 1 minute. No full-thickness injury was found along the mucosa. The stomach was desufflated. The patient tolerated the procedure well. FINDINGS: Diaphragmatic hiatal hernia 6 cm. Squamocolumnar junction 34 cm from the incisors Diaphragmatic hiatus 40 cm from the incisors Balloon dilation 15 mm for 9 mm distal esophageal stricture Hill grade 4 lower esophageal valve. LA grade C erosive esophagitis. No active duodenitis. Chronic gastritis RECOMMENDATIONS: Proton pump inhibitor 1 month treatment Repeat upper endoscopy one month Recommend repair of large diaphragmatic hiatal hernia Plan - Discharge Summary Discharge Rx Participant: No New Discharge Prescriptions: New Omeprazole [PriLOSEC] 40 mg PO DAILY #30 cap No Action Cholecalciferol (Vitamin D3) [Vitamin D3] 2,000 unit PO DAILY Pravastatin Sodium [Pravachol] 20 mg PO HS Natroal Melatonin 1 tab PO HS PRN PRN Reason: Insomnia Cetirizine HCl [Zyrtec] 10 mg PO DAILY PRN PRN Reason: Allergy Symptoms Aspirin 81 mg PO DAILY #90 tab Apixaban [Eliquis] 2.5 mg PO BID #0 Metoprolol Succinate [Toprol XL] 0.5 tab PO BID Hydrochlorothiazide 0.5 tab PO BID Discharge Medication List Cholecalciferol (Vitamin D3) [Vitamin D3] 2,000 unit PO DAILY 10/14/18 [History] Natroal Melatonin 1 tab PO HS PRN 10/14/18 [History] Pravastatin Sodium [Pravachol] 20 mg PO HS 10/14/18 [History] Cetirizine HCl [Zyrtec] 10 mg PO DAILY PRN 12/14/18 [History] Apixaban [Eliquis] 2.5 mg PO BID #0 12/19/18 [Rx] Aspirin 81 mg PO DAILY #90 tab 12/19/18 [Rx] Hydrochlorothiazide 0.5 tab PO BID 03/16/19 [History] Metoprolol Succinate [Toprol XL] 0.5 tab PO BID 03/16/19 [History] Omeprazole [PriLOSEC] 40 mg PO DAILY #30 cap 03/18/19 [Rx] Follow up Appointment(s)/Referral(s): Joanne Nichols MD [STAFF PHYSICIAN] - 03/30/19 Patient Instructions/Handouts: Esophageal Dilation (DC), Hiatal Hernia (DC) Activity/Diet/Wound Care/Special Instructions: liquid diet today. START ELIQUIS 03/22/19 Discharge Disposition: HOME SELF-CARE
[2019-03-18 10:09] VITALS: BP 126/78; PULSE 57
== END | disposition home or self-care (01) ==
LOC: ORWHC2ENDO 08:40
PROVIDERS: ATTEND Surgery Plastic and Reconstructive Surgery
DX: K22.2 Esophageal obstruction (principal); K29.50 Unspecified chronic gastritis without bleeding; K21.0 Gastro-esophageal reflux disease with esophagitis; K22.10 Ulcer of esophagus without bleeding; K44.9 Diaphragmatic hernia without obstruction or gangrene; I10 Essential (primary) hypertension; Z79.82 Long term (current) use of aspirin; Z79.01 Long term (current) use of anticoagulants; Z79.899 Other long term (current) drug therapy; Z88.0 Allergy status to penicillin; Z88.2 Allergy status to sulfonamides; Z90.49 Acquired absence of other specified parts of digestive tract; Z86.718 Personal history of other venous thrombosis and embolism; Z96.651 Presence of right artificial knee joint; Z91.018 Allergy to other foods; Z80.9 Family history of malignant neoplasm, unspecified
CPT/HCPCS: 88305; 43239; 43249; J2001; J2704; C1726

== ENCOUNTER → 2019-05-06 | Outpatient (CLI) | payer MEDICARE, OTHER ==
--- NOTE | 2019-05-06 10:09 | FL ---
EXAMINATION TYPE: FL barium swallow DATE OF EXAM: 05/06/2019 CLINICAL HISTORY: Esophageal obstruction. Known hiatal hernia. Recent stricture dilatation. TECHNIQUE: A double contrast esophagram is performed utilizing air and barium. A total of 1.25 daniella nancy of fluoroscopic time was utilized during procedure. 45 fluoroscopic images were saved. COMPARISON: None FINDINGS: The proximal and mid esophagus shows normal motility however there is delayed emptying in t he stomach from the distal esophagus due to a [id number] hiatal hernia. No evidence of strict ure noted. Mild gastroesophageal reflux was seen during real time performance of this study from the hiatal hernia. IMPRESSION: 1. Small moderate hiatal hernia resulting in mild degree gastroesophageal reflux and delayed passage of contrast from the distal esophagus into the hiatal hernia. 2. No evidence of recurrent stricture.
== END | disposition home or self-care (01) ==
LOC: RADUSWWP 07:45
PROVIDERS: ATTEND Surgery Plastic and Reconstructive Surgery
DX: K21.9 Gastro-esophageal reflux disease without esophagitis (principal); K44.9 Diaphragmatic hernia without obstruction or gangrene; Z88.0 Allergy status to penicillin; Z88.2 Allergy status to sulfonamides; Z91.018 Allergy to other foods
CPT/HCPCS: 74220

== ENCOUNTER 2019-09-03 09:02 | Observation (INO) | payer MEDICARE, OTHER ==
--- NOTE | 2019-09-03 06:28 | P.GSHP ---
History of Present Illness H&P Date: 09/03/19 CHIEF COMPLAINT: Paraesophageal hiatal hernia with gastroesophageal reflux disease. HISTORY OF PRESENT ILLNESS: The patient is a 68-year-old female who presents with paraesophageal hiatal hernia. She has completed an esophageal manometry including upper endoscopy workup. Now she presents for surgical intervention. PAST MEDICAL HISTORY: Please see list. PAST SURGICAL HISTORY: Please see list. MEDICATIONS: Please see list. ALLERGIES: Please see list. SOCIAL HISTORY: No illicit drug use FAMILY HISTORY: No reports of Crohn disease or ulcerative colitis. REVIEW OF ORGAN SYSTEMS: CONSTITUTIONAL: No reports of fevers or chills. GI: Denies any blood in stools or constipation. PHYSICAL EXAM: VITAL SIGNS: Stable GENERAL: Well-developed pleasant and in no acute distress. HEENT: No scleral icterus. Extraocular movements grossly intact. Moist buccal mucosa. NECK: Supple without lymphadenopathy. CHEST: Unlabored respirations. Equal bilateral excursions. CARDIOVASCULAR: Regular rate and rhythm. Distal 2+ pulses. ABDOMEN: Soft, nondistended. No peritoneal signs. MUSCULOSKELETAL: No clubbing, cyanosis, or edema. SKIN: Well-perfused. Good skin turgor. MANOMETRY: Shows no evidence of achalasia or scleroderma. ASSESSMENT: 1. Diaphragmatic paraesophageal hiatal hernia with severe gastroesophageal reflux disease. PLAN: 1. Recommend proceeding with a robotic paraesophageal hiatal hernia with possible mesh. 2. Benefits and risks of surgical intervention was discussed including possibility of open technique. 3. Inpatient hospitalization recommended of 2 nights 4. DVT prophylaxis. 5. Antibiotic prophylaxis. 6. She has also completed a very low caloric high-protein diet to address underlying hepatomegaly. Past Medical History Past Medical History: Blood Disorder, Deep Vein Thrombosis (DVT), Hyperlipidemia Additional Past Medical History / Comment(s): states does not have HTN, states leaky heart valve, states she "has one ? gene of the Leiden factor V" seasonal allergies History of Any Multi-Drug Resistant Organisms: None Reported Past Surgical History: Bowel Resection, Heart Catheterization, Joint Replacement Additional Past Surgical History / Comment(s): HEART CATH IN OCT 2018. RIGHT TOTAL KNEE, has had EGD with dilation, had a temporary colostomy but it was reversed, nasal surgery, ?mari filter, PFO by Dr Rueda 12/18/18 Past Anesthesia/Blood Transfusion Reactions: No Reported Reaction Smoking Status: Never smoker - Past Family History Brother(s) Family Medical History: Cancer Medications and Allergies Home Medications Medication Instructions Recorded Confirmed Type Cholecalciferol (Vitamin D3) 2,000 unit PO DAILY 10/14/18 08/30/19 History [Vitamin D3] Pravastatin Sodium [Pravachol] 20 mg PO HS 10/14/18 08/30/19 History Cetirizine HCl [Zyrtec] 10 mg PO DAILY PRN 12/14/18 08/30/19 History Apixaban [Eliquis] 2.5 mg PO BID #0 12/19/18 08/30/19 Rx Metoprolol Succinate [Toprol XL] 12.5 mg PO BID 03/16/19 08/30/19 History Omeprazole [PriLOSEC] 40 mg PO DAILY #30 cap 03/18/19 08/30/19 Rx Apixaban [Eliquis] 5 mg PO BID 08/30/19 08/30/19 History Fexofenadine HCl [Jory Allergy] 180 mg PO DAILY PRN 08/30/19 08/30/19 History diphenhydrAMINE [Benadryl] 25 mg PO BID PRN 08/30/19 08/30/19 History Allergies Allergy/AdvReac Type Severity Reaction Status Date / Time Penicillins Allergy Unknown Verified 08/30/19 15:28 Sulfa (Sulfonamide AdvReac Nausea & Verified 08/30/19 15:28 Antibiotics) Vomiting
[~2019-09-03 09:02] MED LIST changes: +ACETAMINOPHEN TAB 500 MG TAB PO STA; +CHLORHEXIDINE GLUCONATE 15 ML CUP MUCOUS MEM ONE; +GABAPENTIN 300 MG CAP PO STA; +HEPARIN SODIUM,PORCINE 5,000 UNIT/ML 1 ML VIAL SQ ONE; -LACTATED RINGERS 1,000 ML IV SCH; -LIDOCAINE 1% 20 ML VIAL (10MG/ML) FOR IV START INTRADERMA PRN; -LIDOCAINE 1% INJ 10MG/ML (20 ML MDV) ONE; -PROPOFOL 10 MG/ML 20 ML VIAL IV ONE; +TAMSULOSIN 0.4 MG CAP.ER.24H PO ONE
[2019-09-03] MEDS ORDERED: HYDROmorphone 0.5 MG/0.5 ML SYRINGE IVP PRN (09:26)
[2019-09-03] MEDS ORDERED: fentaNYL (PF) 50 MCG/ML 2 ML AMP IV PRN (09:26)
[2019-09-03] MEDS ORDERED: MIDAZOLAM 2 MG/2 ML VIAL IV PRN (09:26)
[2019-09-03] MEDS ORDERED: LIDOCAINE 1% (10MG/ML) FOR IV START INTRADERMA PRN (09:26)
[2019-09-03] MEDS ORDERED: LACTATED RINGERS 1,000 ML IV SCH (09:26)
[2019-09-03] MEDS ORDERED: ONDANSETRON 4 MG/2 ML VIAL ONE (09:50)
[2019-09-03] MEDS ORDERED: ACETAMINOPHEN TAB 500 MG TAB ONE (09:50)
[2019-09-03 10:08] LABS: Basophils # (A) 0.1 k/uL (0-0.2); Basophils % (A) 1 %; Eosinophils # (A) 0.5 k/uL (0-0.7); Eosinophils % (A) 8 %; HCT 45.3 % (34.0-46.0); HGB 14.5 gm/dL (11.4-16.0); Lymphocytes # (A) 1.1 k/uL (1.0-4.8); Lymphocytes % (A) 18 %; MCH 30.5 pg (25.0-35.0); MCHC 32.1 g/dL (31.0-37.0); Mean Platelet Volume 7.8; Monocytes # (A) 0.5 k/uL (0-1.0); Monocytes % (A) 8 %; Neutrophils % (A) 63 %; Platelet Count 246 k/uL (150-450); RBC 4.77 m/uL (3.80-5.40); RDW 13.5 % (11.5-15.5); WBC 6.4 k/uL (3.8-10.6)
[2019-09-03] MEDS ORDERED: MIDAZOLAM 2 MG/2 ML VIAL IV ONE (10:11)
[2019-09-03 10:20] LABS: ALT 16 U/L (4-34); AST 31 U/L (14-36); African American GFR (CKD) >90 (>60 ml/min/1.73 sqM); Albumin 4.6 g/dL (3.5-5.0); Alkaline Phosphatase 53 U/L (38-126); Anion Gap 7 mmol/L; Blood Urea Nitrogen 21 mg/dL (7-17); Calcium 9.8 mg/dL (8.4-10.2); Carbon Dioxide 30 mmol/L (22-30); Chloride 102 mmol/L (98-107); Glucose 85 mg/dL (74-99); Non-African American GFR(CKD) 88 (>60 ml/min/1.73 sqM); Potassium 3.7 mmol/L (3.5-5.1); Sodium 139 mmol/L (137-145); Total Protein 7.2 g/dL (6.3-8.2)
[2019-09-03] MEDS: PANTOPRAZOLE 40 MG/10 ML VIAL IV ONE ×2 (10:25→10:31)
[2019-09-03] MEDS ORDERED: DEXAMETHASONE SOD PHOSPHATE 10 MG/ML 1 ML VIAL IV ONE (10:25)
[2019-09-03] MEDS ORDERED: LIDOCAINE 1% INJ 10MG/ML (20 ML MDV) ONE (10:30)
[2019-09-03] MEDS ORDERED: fentaNYL (PF) 50 MCG/ML 2 ML AMP ONE (10:30)
[2019-09-03] MEDS ORDERED: PROPOFOL 10 MG/ML 20 ML VIAL IV ONE (10:30)
[2019-09-03] MEDS ORDERED: ROPIVACAINE 5 MG/ML 30 ML VIAL ONE (10:30)
[2019-09-03] MEDS ORDERED: ROCURONIUM BROMIDE 10 MG/ML 5 ML VIAL IV ONE (10:30)
[2019-09-03] MEDS ORDERED: ePHEDrine SULFATE/0.9% NACL/PF 50 MG/5 ML SYRINGE IV ONE (10:30)
[2019-09-03] MEDS ORDERED: NEOSTIGMINE 1 MG/ML 10 ML VIAL ONE (10:30)
[2019-09-03] MEDS ORDERED: GLYCOPYRROLATE 0.2 MG/ML 2 ML VIAL ONE (10:30)
--- NOTE | 2019-09-03 10:49 | P.ANPRN ---
Procedure Note - Anesthesia - Nerve Block Performed Bilateral Transversus Abdominis Single Time Out Performed: Yes Date of Procedure: 09/03/19 Procedure Start Time: 10:10 Procedure Stop Time: 10:14 Location of Patient: PreOp Indication: Acute Post-Operative Pain, Analgesia, Requested by Surgeon Sedation Type: Sedate with meaningful contact maintained Preparation: Sterile Prep Position: Supine Catheter: None Needle Types: Pajunk Needle Gauge: 21 Ultrasound used to visualize needle placement: Yes Ultrasound used to observe medication spread: Yes Injectate: 0.5% Ropivacaine (see comment for volume) (0.25% 30cc each side) Blood Aspirated: No Pain Paresthesia on Injection Noted: No Resistance on Injection: Normal Image Stored and Saved: Yes Events: Uneventful and Well Tolerated
[2019-09-03] MEDS ORDERED: BUPIVACAIN-EPI 0.25%-1:200,000 30 ML VIAL SQ ONE (11:02)
[2019-09-03] MEDS ORDERED: diphenhydrAMINE 50 MG/ML 1 ML VIAL IVP ONE (12:35)
[2019-09-03] MEDS ORDERED: KETOROLAC 30 MG/ML 1 ML VIAL IVP ONE (12:40)
[2019-09-03] MEDS ORDERED: LORATADINE 10 MG TAB PO PRN (12:40)
--- NOTE | 2019-09-03 12:40 | P.OP ---
Date of Procedure: 09/03/19 Description of Procedure: SURGEON: LI KEARNEY MD PREOPERATIVE DIAGNOSES: 1. Symptomatic paraesophageal diaphragmatic hiatal hernia 2. Gastroesophageal reflux disease 3. Dysphagia 4. Hypertensive heart disease 5. Patent foramen ovale 6. Factor V Leiden disorder 7. Past history of DVTs 8. Chronic anticoagulants use 9. Hyperlipidemia 10. Previous history of descending colostomy with reversal POSTOPERATIVE DIAGNOSES: 1. Symptomatic paraesophageal diaphragmatic hiatal hernia, type III, over 60% incarceration 2. Gastroesophageal reflux disease 3. Dysphagia 4. Hypertensive heart disease 5. Patent foramen ovale 6. Factor V Leiden disorder 7. Past history of DVTs 8. Chronic anticoagulants use 9. Hyperlipidemia 10. Previous history of descending colostomy with reversal 11. Severe intra-abdominal adhesions including epigastrium from previous abdominal surgery 12. 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 Robotic-assisted da Micheal Xi laparoscopic repair of LARGE incarcerated paraesophageal hiatal hernia, 5 x 5 cm, with [place] Biopatch A 8 x 8 cm. 2. Robotic-assisted da Micheal Xi laparoscopic lysis of adhesions 3. Intraoperative esophagogastroduodenoscopy 4. Placement of esophageal bougie 52-Niuean bougie ANESTHESIA: General with local anesthetic. ESTIMATED BLOOD LOSS: 5 mL SPECIMENS REMOVED: None COMPLICATIONS: None. Condition: stable Disposition: floor FINDINGS: 1. Midline intra-thoracic LARGE incarcerated paraesophageal hiatal hernia 5 x 5 cm, incorporating over 60% of stomach 2. Intraoperative upper endoscopy confirms complete closure of hiatal hernia from Hill grade 4 to Hill grade 1 3. Lower esophageal sphincter at 35 cm from the incisors 4. Intra-abdominal esophageal length over 3 cm 5. Severe epigastric including intra-abdominal adhesions from previous surgery 6. 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 Preoperative workup including upper endoscopy demonstrated a Hill grade 4 lower esophageal valve. She completed an esophageal manometry. Given the severity of symptoms, she had elected for surgical intervention. Benefits and risks including bleeding, infection, recurrence, dysphagia, injury to the lung, need for further surgery was described at length. Informed consent was obtained. DESCRIPTION: The patient was brought into the operating room and placed in supine position. Preoperatively she had received heparin subcutaneously for DVT prophylaxis. After general induction, the abdomen was prepped and draped in standard sterile fashion. The patient had previously voided prior to coming to the operating room. Ioban draping was placed along the abdomen. A timeout protocol was confirmed with the surgical team, for which the patient's name, procedure to be performed including DVT prophylaxis with bilateral SCDs, and preoperative antibiotics were also confirmed. A robotic da Micheal Xi system was prepped and primed. At 12 cm from the xiphoid to just below the umbilicus, proposed port sites were marked with indelible marker along the left axillary line, left mid-clavicular line with each ports were marked 8 cm from each other. A 5 mm 0 degrees laparoscopic trocar entry was performed along the left upper quadrant. The abdomen was insufflated to 15 mmHg pressure was tolerated well. Diagnostic laparoscopy demonstrated no injury to bowel, viscera, or mesentery. Dense adhesions incorporating greater omentum to the abdominal wall were identified along the left upper quadrant, epigastrium, lower abdomen from her previous multiple abdominal surgeries. The left lobe of the liver was completely hypoplastic with exposure of the anterior hiatus. Over 60% incarceration of the stomach was incarcerated within the mediastinum. Gallbladder was present and in dense adhesions. Additionally, the right lobe of the liver was adherent to the abdominal wall. A defect of the falciform ligament revealed a hernia at the xiphoid undisturbed. Next, one 8 mm robotic port was placed along the right upper abdomen. An 8-mm port was were placed along the left lateral abdominal wall. The camera 8-mm port was maintained along the epigastrium via the hernia defect. Another 12 mm port was placed along the left upper abdominal wall after exchanging the 5 mm port. Please note that the ports were placed at least 20 cm away from the target anatomy. Care was taken to check that each robotic arm were safely away from collision with the bed or the patient. All robotic arms were used without use of liver retractor secondary to hypoplastic left lobe of the liver and adhesions of surface of liver to the abdominal wall. The patient was repositioned in reverse Trendelenburg position at 21-degrees after lowering the bed. The robot was docked above the right side of the patient. Using a grasper for arm 3, a grasper for arm 1, including vessel sealer for arm 2, the robotic system was docked and primed as described. Instruments were interchanged by the fundraising assistant. I had sat at the console. The gastrohepatic ligament was cleaved using a vessel sealer. The hiatal hernia sac was retracted from the intrathoracic portion into the abdomen. Next, the phrenoesophageal ligament was mobilized and the distal esophagus was mobilized circumferentially. The left and right crura was identified. Circumferentially, the hernia sac was excised and brought into the peritoneal cavity. Moderate dissection into the mediastinum and along the aorta was performed to release the esophagus into the abdominal cavity. Additionally, adhesions about the mid body of the stomach and short gastrics were also released. Care was taken to avoid any gastrotomy. The measured defect was consistent with 5 cm axial length and 5 cm in width. After dissection, the distal esophagus of 3 cm was brought into the abdominal cavity. Once the hiatus and crura was dissected, 2-0 VLOC nonabsorbable suture was placed to re-approximate the diaphragmatic hiatus posteriorly. To buttress the repair, a [place] Biopatch A was prepared along the back table and cut in half of a pradhan-hole fashion as to reinforce the repair as an underlay. The mesh was placed along the crural repair and tagged using horizontal mattress sutures using 2-0 VLOC. I went to the head of the bed to perform intraoperative esophagogastroduodenoscopy. Secondary to her esophageal dysmotility including pre-existing dysphagia, intraoperative placement of 52-Niuean bougie was selected. An Olympus gastroscope was passed through posterior oropharynx. Retroflexion of the scope confirmed a Hill grade 1 lower esophageal valve. , Bougie was passed and left for 1 minute to allow dilation of her esophagus. The scope was re-entered confirmed no esophageal or gastric tears. The stomach had been desufflated. No evidence of leaks were found of the esophagus or stomach. The squamocolumnar junction and hiatus was placed at 35 cm from the incisors. The GI tract with desufflated This concluded the endoscopic portion of the case. The robot was undocked from the patient. I re-scrubbed into the case. All instruments and pneumoperitoneum and specimens were evacuated from the abdominal cavity. Incisions were reapproximated using 4-0 Monocryl in an interrupted subcuticular fashion. Liquid glue was applied to the skin. Local anesthetic was infiltrated in all wounds for postop analgesia. Multiple intra-abdominal films were obtained. At the end of the procedure, needle, sponge, and instrument count was verified c orrect by the biomedical instrument technician. The patient had tolerated the procedure well and was taken to the postanesthesia unit in stable condition. Intraoperative films were reviewed with the patient's family who was pleased with the level of care. Console time 41 minutes.
[2019-09-03] MEDS ORDERED: DEXAMETHASONE SOD PHOSPHATE 10 MG/ML 1 ML VIAL IV PRN (12:43)
[2019-09-03] MEDS ORDERED: fentaNYL (PF) 50 MCG/ML 2 ML AMP IVP ONE (12:44)
[2019-09-03] MEDS ORDERED: MEPERIDINE 50 MG/ML SYRINGE IVP ONE ×2 (12:54→13:22)
[2019-09-03] MEDS ORDERED: LACTATED RINGERS 1,000 ML IV ONE (13:00)
[2019-09-03] MEDS ORDERED: HYDROmorphone 0.5 MG/0.5 ML SYRINGE IVP ONE (14:04)
--- NOTE | 2019-09-03 16:06 | FL ---
EXAMINATION TYPE: FL esophagus cervic/pharynx DATE OF EXAM: 09/03/2019 HISTORY: Postop COMPARISON: NONE TECHNIQUE: A single contrast esophagram is performed utilizing Isovue 370. 8 images submitted. 23 se conds of fluoroscopy utilized. FINDINGS: Tertiary contractions of esophagus. Foreign body seen at the epigastric region likely posts urgical correlate clinically. There is mild delay at the GE junction but eventual passage of all cont rast into the stomach. Subsegmental changes involving the lung bases likely postoperative atelectasis . Cannot exclude a tiny amount of free intraperitoneal air likely postoperative.. IMPRESSION: 1. Mild evidence of delay or obstruction of the GE junction with no evidence of extravasation.
[2019-09-03] MEDS: SIMETHICONE 40 MG/0.6 ML DROPS 2,000 MG/30 ML BOTTLE PO SCH ×3 (16:27→20:32)
[2019-09-03] MEDS: METOCLOPRAMIDE 5 MG/ML 2 ML VIAL IVP SCH (17:20)
[2019-09-03] MEDS: ONDANSETRON 4 MG/2 ML VIAL IVP SCH (17:25)
[2019-09-03] MEDS: DEXAMETHASONE SOD PHOSPHATE 4 MG/ML 1 ML VIAL IV SCH (17:29)
[2019-09-03] MEDS: SODIUM CHLORIDE 0.9% 1,000 ML IV SCH (17:32)
[2019-09-03] MEDS: HYDROmorphone 1 MG/ML 1 ML SYRINGE IVP PRN (17:36)
[2019-09-03] MEDS ORDERED: TAMSULOSIN 0.4 MG CAP.ER.24H PO SCH (18:30)
[2019-09-03] MEDS: METOPROLOL SUCCINATE (ER) 25 MG TAB.ER.24H PO SCH (20:31)
[2019-09-04] MEDS: HYDROmorphone 1 MG/ML 1 ML SYRINGE IVP PRN ×3 (00:28→13:32)
[2019-09-04] MEDS: ONDANSETRON 4 MG/2 ML VIAL IVP SCH ×4 (00:29→18:38)
[2019-09-04] MEDS: METOCLOPRAMIDE 5 MG/ML 2 ML VIAL IVP SCH ×4 (00:35→18:38)
[2019-09-04] MEDS: DEXAMETHASONE SOD PHOSPHATE 4 MG/ML 1 ML VIAL IV SCH ×3 (00:35→13:22)
[2019-09-04 03:03] VITALS: RESP 18
[2019-09-04] MEDS: SODIUM CHLORIDE 0.9% 1,000 ML IV SCH (05:35)
[2019-09-04 07:41] LABS: African American GFR (CKD) >90 (>60 ml/min/1.73 sqM); Anion Gap 4 mmol/L; Blood Urea Nitrogen 13 mg/dL (7-17); Calcium 8.6 mg/dL (8.4-10.2); Carbon Dioxide 25 mmol/L (22-30); Chloride 106 mmol/L (98-107); Glucose 131 mg/dL (74-99); Non-African American GFR(CKD) >90 (>60 ml/min/1.73 sqM); Potassium 4.5 mmol/L (3.5-5.1); Sodium 135 mmol/L (137-145)
[2019-09-04] MEDS: SIMETHICONE 40 MG/0.6 ML DROPS 2,000 MG/30 ML BOTTLE PO SCH ×3 (08:52→18:34)
[2019-09-04] MEDS ORDERED: ENOXAPARIN 30 MG/0.3 ML SYRINGE SQ SCH (09:00)
[2019-09-04] MEDS ORDERED: SODIUM CHLORIDE 0.9% 500 ML 500 ML IV ONE (09:54)
[2019-09-04 10:11] LABS: Basophils % (A) 0 %; Eosinophils % (A) 0 %; HCT 38.1 % (34.0-46.0); HGB 11.8 gm/dL (11.4-16.0); Lymphocytes # (A) 0.5 k/uL (1.0-4.8); Lymphocytes % (A) 7 %; MCH 29.9 pg (25.0-35.0); MCV 96.5 fL (80.0-100.0); Mean Platelet Volume 8.9; Monocytes # (A) 0.3 k/uL (0-1.0); Monocytes % (A) 4 %; Neutrophils # (A) 7.4 k/uL (1.3-7.7); Neutrophils % (A) 89 %; Platelet Count 207 k/uL (150-450); RBC 3.95 m/uL (3.80-5.40); RDW 13.6 % (11.5-15.5); WBC 8.3 k/uL (3.8-10.6)
[2019-09-04 13:14] VITALS: BMI 28.0
--- NOTE | 2019-09-04 13:44 | P.PN ---
Subjective Progress Note Date: 09/04/19 Principal diagnosis: Reflux Patient doing fairly well at this time. Had an episode of hypotension this morning. Is on metoprolol which was held. Blood pressure improved now. M orning labs look good. Denies pain. Tolerating liquids. Objective - Vital Signs Vital signs: Vital Signs Temp 96.9 F L 09/04/19 08:00 Pulse 66 09/04/19 08:00 Resp 18 09/04/19 08:00 BP 100/61 09/04/19 10:59 Pulse Ox 94 L 09/04/19 08:00 Intake & Output 09/03/19 09/04/19 09/04/19 18:59 06:59 18:59 Intake Total 1450 800 Output Total 5 500 200 Balance 1445 -500 600 Weight 74.2 kg 74.2 kg Intake: IV 1450 Oral 800 Output: Urine 500 200 Estimated Blood Loss 5 Other: # Voids 1 1 - Exam Abdomen: Soft, nondistended, minimal incisional tenderness, incisions clean and dry - Labs CBC & Chem 7: 09/04/19 07:01 09/04/19 07:01 Labs: Abnormal Lab Results - Last 24 Hours (Table) 09/04/19 09/04/19 Range/Units 07:01 07:01 Lymphocytes # 0.5 L (1.0-4.8) k/uL Sodium 135 L (137-145) mmol/L Glucose 131 H (74-99) mg/dL Assessment and Plan (1) Hiatal hernia with gastroesophageal reflux disease and esophagitis Narrative/Plan: Patient doing well at this time. Continue to monitor blood pressure. Blood pressure remained stable consider discharge later today. Patient would like to go home if possible. Current Visit: No Status: Acute Code(s): K44.9 - DIAPHRAGMATIC HERNIA WITHOUT OBSTRUCTION OR GANGRENE; K21.0 - GASTRO-ESOPHAGEAL REFLUX DISEASE WITH ESOPHAGITIS SNOMED Code(s): 313331611
[2019-09-04 14:16] VITALS: TEMP 98.6
[2019-09-04] MEDS: METOPROLOL SUCCINATE (ER) 25 MG TAB.ER.24H PO SCH (15:57)
[2019-09-04 17:29] VITALS: BP 102/62; PULSE 72
--- NOTE | 2019-09-09 07:20 | P.DS ---
Providers Date of admission: 09/04/19 10:00 Expected date of discharge: 09/04/19 Attending physician: Joanne Nichols Primary care physician: Michael Dorman - Discharge Diagnosis(es) (1) Paraesophageal hiatal hernia Status: Acute (2) Peritoneal adhesions Status: Acute (3) Hiatal hernia with gastroesophageal reflux disease and esophagitis Status: Acute Hospital Course: POSTOPERATIVE DIAGNOSES: 1. Symptomatic paraesophageal diaphragmatic hiatal hernia, type III, over 60% incarceration 2. Gastroesophageal reflux disease 3. Dysphagia 4. Hypertensive heart disease 5. Patent foramen ovale 6. Factor V Leiden disorder 7. Past history of DVTs 8. Chronic anticoagulants use 9. Hyperlipidemia 10. Previous history of descending colostomy with reversal 11. Severe intra-abdominal adhesions including epigastrium from previous abdominal surgery 12. Ventral hernia falciform ligament 13. Left liver lobe hypoplasia COURSE: The patient is a 68 year-old female who presents with regurgitation, dysphagia, and a symptomatic diaphragmatic hiatal hernia. Preoperative workup including upper endoscopy demonstrated a Hill grade 4 lower esophageal valve. She completed an esophageal manometry. Given the severity of symptoms, she had elected for surgical intervention. Benefits and risks including bleeding, infection, recurrence, dysphagia, injury to the lung, need for further surgery was described at length. Informed consent was obtained. An esophagram was performed demonstrating resolution of her hiatal hernia. Preoperative including perioperative diet was reviewed in detail. Prior to discharge, patient was hemodynamically stable. Pertinent Studies: OPERATION: 1. Robotic-assisted da Micheal Xi laparoscopic repair of LARGE incarcerated paraesophageal hiatal hernia, 5 x 5 cm, with Oxford Biopatch A 8 x 8 cm. 2. Robotic-assisted da Micheal Xi laparoscopic lysis of adhesions 3. Intraoperative esophagogastroduodenoscopy 4. Placement of esophageal bougie 52-Fijian bougie ANESTHESIA: General with local anesthetic. ESTIMATED BLOOD LOSS: 5 mL SPECIMENS REMOVED: None COMPLICATIONS: None. Condition: stable Disposition: floor FINDINGS: 1. Midline intra-thoracic LARGE incarcerated paraesophageal hiatal hernia 5 x 5 cm, incorporating over 60% of stomach 2. Intraoperative upper endoscopy confirms complete closure of hiatal hernia from Hill grade 4 to Hill grade 1 3. Lower esophageal sphincter at 35 cm from the incisors 4. Intra-abdominal esophageal length over 3 cm 5. Severe epigastric including intra-abdominal adhesions from previous surgery 6. Severe hypoplasia of the left lobe of the liver with complete exposure of hiatus Patient Condition at Discharge: Stable Plan - Discharge Summary Discharge Rx Participant: No New Discharge Prescriptions: New Bisacodyl [Dulcolax] 5 mg PO DAILY PRN #10 tablet.dr WEEKS Reason: Constipation Simethicone 40 mg/0.6 ml Drops [Mylicon Drops] 40 mg PO PCHS PRN #30 ml PRN Reason: Gas Omeprazole [PriLOSEC] 40 mg PO DAILY #30 capsule. Ondansetron Odt [Zofran Odt] 4 mg PO Q8HR PRN #9 tab PRN Reason: Nausea Continue Cholecalciferol (Vitamin D3) [Vitamin D3] 2,000 unit PO DAILY Pravastatin Sodium [Pravachol] 20 mg PO HS Cetirizine HCl [Zyrtec] 10 mg PO DAILY PRN PRN Reason: Allergy Symptoms Metoprolol Succinate [Toprol XL] 12.5 mg PO BID Omeprazole [PriLOSEC] 40 mg PO DAILY #30 cap Apixaban [Eliquis] 5 mg PO BID diphenhydrAMINE [Benadryl] 25 mg PO BID PRN PRN Reason: allergies Fexofenadine HCl [Jory Allergy] 180 mg PO DAILY PRN PRN Reason: allergies Discharge Medication List Cholecalciferol (Vitamin D3) [Vitamin D3] 2,000 unit PO DAILY 10/14/18 [History] Pravastatin Sodium [Pravachol] 20 mg PO HS 10/14/18 [History] Cetirizine HCl [Zyrtec] 10 mg PO DAILY PRN 12/14/18 [History] Metoprolol Succinate [Toprol XL] 12.5 mg PO BID 03/16/19 [History] Omeprazole [PriLOSEC] 40 mg PO DAILY #30 cap 03/18/19 [Rx] Apixaban [Eliquis] 5 mg PO BID 08/30/19 [History] Fexofenadine HCl [Jory Allergy] 180 mg PO DAILY PRN 08/30/19 [History] diphenhydrAMINE [Benadryl] 25 mg PO BID PRN 08/30/19 [History] Bisacodyl [Dulcolax] 5 mg PO DAILY PRN #10 tablet. 09/04/19 [Rx] Omeprazole [PriLOSEC] 40 mg PO DAILY #30 capsule. 09/04/19 [Rx] Ondansetron Odt [Zofran Odt] 4 mg PO Q8HR PRN #9 tab 09/04/19 [Rx] Simethicone 40 mg/0.6 ml Drops [Mylicon Drops] 40 mg PO PCHS PRN #30 ml 09/04/19 [Rx] Follow up Appointment(s)/Referral(s): Joanne Nichols MD [STAFF PHYSICIAN] - 09/07/19 Patient Instructions/Handouts: Clear Liquid Diet (DC), Laparoscopic Hiatal Hernia Repair (DC) Activity/Diet/Wound Care/Special Instructions: Liquid diet only. No carbonated beverages. No straws. No lifting over 4 pounds in 4 weeks, October 03. May shower. No bath tub soaks for 2 weeks until September 16. May take [id number] Tylenol for pain. Do not remove scopolamine patch for 3 days, if present Discharge Disposition: HOME SELF-CARE
== END 2019-09-04 19:17 | disposition home or self-care (01) ==
LOC: OR 09:02 → 6PED 12:38 → OR 09-04 10:00 → 6PED 09-04 10:00
PROVIDERS: ADMIT Surgery Plastic and Reconstructive Surgery; ATTEND Surgery Plastic and Reconstructive Surgery
DX: K66.0 Peritoneal adhesions (postprocedural) (postinfection) (principal); K44.0 Diaphragmatic hernia with obstruction, without gangrene; K21.0 Gastro-esophageal reflux disease with esophagitis; I95.81 Postprocedural hypotension; Q21.1 Atrial septal defect; I11.9 Hypertensive heart disease without heart failure; D68.51 Activated protein C resistance; E78.5 Hyperlipidemia, unspecified; K22.4 Dyskinesia of esophagus; K43.9 Ventral hernia without obstruction or gangrene; Q44.7 Other congenital malformations of liver; Z79.01 Long term (current) use of anticoagulants; Z79.899 Other long term (current) drug therapy; Z88.0 Allergy status to penicillin; Z88.2 Allergy status to sulfonamides; Z87.74 Personal history of (corrected) congenital malformations of heart and circulatory system; Z95.828 Presence of other vascular implants and grafts; Z86.718 Personal history of other venous thrombosis and embolism; Z96.60 Presence of unspecified orthopedic joint implant; Z90.49 Acquired absence of other specified parts of digestive tract; Z80.9 Family history of malignant neoplasm, unspecified
CPT/HCPCS: 43282; 64488; 80053; 80048; 85025 ×2; 74210; G0378; C1781; J2250; J1200; J1644; J1100 ×3; J2710; J2765 ×2; J2175; J0690 ×2; J2405 ×2; J2001; J3010; J1885; J1650; J1170 ×3; J2795; J2704; C9113; Q9967

== ENCOUNTER → 2019-12-09 | Outpatient (CLI) | payer MEDICARE, OTHER ==
--- NOTE | 2019-12-10 13:56 | MM ---
Reason for exam: screening (asymptomatic). Last mammogram was performed 1 year and 10 months ago. History: Patient is postmenopausal. Excisional biopsy of the right breast, 2007. Benign US left CoreBiopsy of the left breast, October 05, 2004. Benign US right core biopsy of the right breast, October 05, 2004. Taking estrogen for 4 years beginning at age 57. Taking progesterone for 4 years beginning at age 57. Physical Findings: A clinical breast exam by your physician is recommended on an annual basis and results should be correlated with mammographic findings. MG 3D Screening Mammo W/Cad Bilateral CC and MLO view(s) were taken. Prior study comparison: February 06, 2018, bilateral MG 3d screening mammo w/cad. January 07, 2017, bilateral MG 3d screening mammo w/cad. There are scattered fibroglandular densities. No significant changes when compared with prior studies. ASSESSMENT: Benign, BI-RAD 2 RECOMMENDATION: Routine screening mammogram of both breasts in 1 year.
== END | disposition home or self-care (01) ==
LOC: RADMAMWWP 09:31
PROVIDERS: ATTEND Obstetrics & Gynecology
DX: Z12.31 Encounter for screening mammogram for malignant neoplasm of breast (principal)
CPT/HCPCS: 77063; 77067

== ENCOUNTER → 2021-01-03 | Outpatient (CLI) | payer MEDICARE, OTHER ==
--- NOTE | 2021-01-05 13:47 | MM ---
Reason for exam: screening (asymptomatic). Last mammogram was performed 1 year and 1 month ago. History: Patient is postmenopausal. Excisional biopsy of the right breast, 2007. Benign US left CoreBiopsy of the left breast, October 05, 2004. Benign US right core biopsy of the right breast, October 05, 2004. Taking estrogen for 4 years beginning at age 57. Taking progesterone for 4 years beginning at age 57. Physical Findings: A clinical breast exam by your physician is recommended on an annual basis and results should be correlated with mammographic findings. MG 3D Screening Mammo W/Cad Bilateral CC and MLO view(s) were taken. Prior study comparison: December 09, 2019, bilateral MG 3d screening mammo w/cad. February 06, 2018, bilateral MG 3d screening mammo w/cad. The breast tissue is heterogeneously dense. This may lower the sensitivity of mammography. No significant changes when compared with prior studies. ASSESSMENT: Benign, BI-RAD 2 RECOMMENDATION: Routine screening mammogram of both breasts in 1 year.
== END | disposition home or self-care (01) ==
LOC: RADMAMWWP 14:24
PROVIDERS: ATTEND Obstetrics & Gynecology
DX: Z12.31 Encounter for screening mammogram for malignant neoplasm of breast (principal); Z78.0 Asymptomatic menopausal state
CPT/HCPCS: 77063; 77067

== ENCOUNTER → 2021-11-13 | Outpatient (CLI) | payer MEDICARE, OTHER ==
[2021-11-13 09:54] VITALS: BP 116/76; PULSE 58; RESP 18; TEMP 97.8
--- NOTE | 2021-11-13 10:55 | P.HPOB ---
History of Present Illness H&P Date: 11/13/21 Chief Complaint: The patient is here for her routine gynecologic exam. This is a 70-year-old with an LMP of approximately 2002. The patient is here to establish with this office. It has been about 1 year since her last pelvic exam. She is without gynecologic complaints and denies any postmenopausal bleeding. She previously saw Dr. Pitt for her well woman examinations. Review of Systems The patient states her weight can fluctuate by up to 6 pounds. She denies respiratory or cardiac problems. GI: Occasional constipation. Past Medical History Past Medical History: Blood Disorder, Deep Vein Thrombosis (DVT), Hyperlipidemia, Osteoarthritis (OA) Additional Past Medical History / Comment(s): states does not have HTN, states leaky heart valve. Factor V Leiden mutation. seasonal allergies. 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 History of Any Multi-Drug Resistant Organisms: None Reported Past Surgical History: Bowel Resection, Heart Catheterization, Hernia Repair, Joint Replacement Additional Past Surgical History / Comment(s): HEART CATH IN OCT 2018. RIGHT TOTAL KNEE, has had EGD with dilation, nasal surgery, ?mari filter, PFO by Dr Rueda 12/18/18. Bowel surgery, had a temporary colostomy but it was reversed. Colonoscopy in the past. Past Anesthesia/Blood Transfusion Reactions: No Reported Reaction Past Psychological History: No Psychological Hx Reported Additional Psychological History / Comment(s): occasional anxiety Smoking Status: Never smoker Past Alcohol Use History: Occasional (0-2 per week) Past Drug Use History: None Reported Additional History: She has been since 1973 and is a retired [employer]. - Past Family History Brother(s) Family Medical History: Cancer Medications and Allergies Home Medications Medication Instructions Recorded Confirmed Type Cholecalciferol (Vitamin D3) 2,000 unit PO DAILY 10/14/18 11/13/21 History [Vitamin D3] Metoprolol Succinate [Toprol XL] 25 mg PO BID 03/16/19 11/13/21 History Apixaban [Eliquis] 5 mg PO BID 08/30/19 11/13/21 History diphenhydrAMINE [Benadryl] 25 mg PO BID PRN 08/30/19 11/13/21 History bisacodyL [Dulcolax] 5 mg PO DAILY PRN #10 tablet. 09/04/19 11/13/21 Rx Allergies Allergy/AdvReac Type Severity Reaction Status Date / Time Penicillins Allergy Unknown Verified 11/13/21 09:35 Sulfa (Sulfonamide AdvReac Nausea & Verified 11/13/21 09:35 Antibiotics) Vomiting Exam Vital Signs Temp Pulse Resp BP Pulse Ox 11/13/21 09:39 97.8 F 58 L 18 116/76 96 Intake and Output 11/12/21 11/13/21 11/13/21 22:59 06:59 14:59 Other: Weight 78.925 kg Height 5 feet 4 inches, weight 174 pounds, BMI 29.9. This is a well-developed well-nourished white female who is alert and oriented times 3 in no acute distress. HEENT: Within normal limits. NECK: Supple without mass or thyromegaly. CHEST AND LUNGS: Clear to auscultation. HEART: Regular rate and rhythm. BREASTS: Are without mass or discharge. AXILLARY EXAM: Negative for adenopathy. BACK: Negative for CVA tenderness. ABDOMEN: Soft, nontender, without palpable masses. PELVIC EXAM: Normal external genitalia with mild to moderate atrophy. Cervix and vagina appear normal mild to moderate atrophy. There is no unusual discharge. There is no evidence of prolapse. The uterus is midposition, nongravid size and nontender. There are no palpable adnexal masses or tenderness. RECTAL EXAM: Rectovaginal exam is negative for mass or tenderness and is negative for occult blood. EXTREMITIES: Nontender. IMPRESSION: 1. 70-year-old menopausal female with normal gynecologic exam. 2. History of osteopenia. PLAN: 1. Pap smear cotest was performed. We will obtain Pap smear records from her previous gynecology, Dr. Pitt. If she has been adequately screened and this can be documented, we will plan on discontinuing Pap smears. She has no history of cervical neoplasia. 2. Self breast awareness was discussed with the patient. We have also discussed symptoms associated with inflammatory breast cancer. 3. Screening mammogram will be due after 01/03/2022. The order was given to the patient for this. 4. Osteoporosis prevention was discussed. I have stressed the importance of adequate calcium, vitamin D and regular exercise. Recommended amounts of calcium and vitamin D were also discussed. Her last bone density test was done on in 2018. I have recommended that she repeat the bone density test and the order slip was given to the patient for this. She will try to have this done at the same time as her mammogram. 5. Colorectal cancer screening was discussed. She is uncertain when her last colonoscopy was done. I have recommended that she discuss this with her PCP. 6. She has not received a Covid vaccination, but has had Covid in the past. She understands Covid vaccination can have additional protection against Covid. She is declining this. 7. The patient was advised to return in 1-2 years for her well woman examination.
== END ==
LOC: WWCWWP 09:28
PROVIDERS: ATTEND Obstetrics & Gynecology
DX: Z01.419 Encounter for gynecological examination (general) (routine) without abnormal findings (principal); Z78.0 Asymptomatic menopausal state; Z87.39 Personal history of other diseases of the musculoskeletal system and connective tissue; Z86.73 Personal history of transient ischemic attack (TIA), and cerebral infarction without residual deficits; E78.5 Hyperlipidemia, unspecified; M19.90 Unspecified osteoarthritis, unspecified site; F41.9 Anxiety disorder, unspecified; Z88.0 Allergy status to penicillin; Z88.2 Allergy status to sulfonamides

== ENCOUNTER → 2022-01-07 | Outpatient (CLI) | payer MEDICARE, OTHER ==
--- NOTE | 2022-01-07 14:28 | BD ---
EXAMINATION TYPE: Axial Bone Density DATE OF EXAM: 01/07/2022 COMPARISON: Prior DEXA bone scan 2017 CLINICAL HISTORY: 71 years year old Female. ICD-10 CODE: Z780 POST SHUBHAM WITHOUT HRT Height: 53.25 Weight: 163 FRAX RISK QUESTIONS: Alcohol (3 or more units per day): NO Family History (Parent hip fracture): MOTHER Glucocorticoids (More than 3mos): NO History of Fracture in Adulthood: NO Secondary Osteoporosis: 1. Type 1 Diabetes: NO 2. Hyperthyroidism: NO 3. Menopause before 45: NO 4. Malnutrition: NO 5. Chronic liver disease: NO Rheumatoid Arthritis: NO Current Tobacco Use: NO RISK FACTORS HISTORY OF: Hip Fracture (Right/Left): NO Spine Fracture: NO History of Wrist Fracture: NO Surgery to Spine/Hip(right/left)/Wrist (right/left): NO Family History of Osteoporosis: NO Active: NO Diet low in dairy products/other sources of calcium: YES Postmenopausal woman: YES Take estrogen and/or progesterone medications: NO Lost more than 2 inches in height since high school: NO Frequent falls: NO Poor Health: NO Hyperparathyroidism: NO Adrenal Insufficiency: NO MEDICATIONS: Prednisone or other steroids: NO Thyroid Medications: NO Osteoporosis Medications:NO Additional Medications: BP MEDS, VIT D, EXAM MEASUREMENTS: Bone mineral densitometry was performed using the [employer] System. Bone mineral density as measured about the Lumbar spine is: ----- L1-L4(G/cm2): 0.948 T Score Values are as follows: ----- L1: -2.1 ----- L2: -2.4 ----- L3: -1.9 ----- L4: -1.7 ----- L1-L4: -1.9 Bone mineral density has: DECREASED -4.1 % since study of: 04/15/2017 Bone mineral density about the R hip (g/cm2): 0.7869 Bone mineral density about the L hip (g/cm2): 0.754 T Score values are as follows: -----R Neck: -2.0 -----L Neck: -1.9 -----R Total: -1.6 -----L Total: -1.7 Bone mineral density has: DECREASED -5.4 % since study of: 04/15/2017 FRAX%s: The graph provided illustrates a 21.2% chance for a major osteoporotic fx and a 9.6% chance f or the hips probability for fx in 10 years time. IMPRESSION: Osteopenia (T Score between -2.5 and -1) is redemonstrated. There is slightly increased risk of fracture and the patient may be considered for treatment. Re-Screen 2-5 years. NOTE: T-SCORE=SD OF THE YOUNG ADULT MEAN.
--- NOTE | 2022-01-08 07:58 | MM ---
Reason for Exam: Screening (asymptomatic). Last screening mammogram was performed 12 month(s) ago. Patient History: Menarche at age 11. First Full-Term at age 28. Late child-bearing (after 28). Postmenopausal. Currently using Estrogen, beginning at age 57 for 4 years. Progesterone, starting at age 57 for 4 years. 2007, Excisional Biopsy on the Right side. 10/05/2004, Benign Core Biopsy on the left side. 10/05/2004, Benign Core Biopsy on the right side. Risk Values: Dorcas 5 year model risk: 3.6%. NCI Lifetime model risk: 8.8%. Prior Study Comparison: 02/06/2018 Bilateral Screening Mammogram, [facility]. 12/09/2019 Bilateral Screening Mammogram, [facility]. 01/03/2021 Bilateral Screening Mammogram, [facility]. Tissue Density: The breast tissue is heterogeneously dense. This may lower the sensitivity of mammography. Findings: Analyzed By CAD. There is no suspicious group of microcalcifications or new suspicious mass in either breast. Stable chronic nodularity within both breasts. No significant change from prior exams. Overall Assessment: Benign, BI-RAD 2 Management: Screening Mammogram of both breasts in 1 year. A clinical breast exam by your physician is recommended on an annual basis and results should be correlated with mammographic findings. Electronically signed and approved by: Keyshawn Ackerman D.O.
--- NOTE | 2022-01-08 09:28 | P.PN ---
Progress Note - Text Progress Note Date: 01/08/22 OUTPATIENT FOLLOW-UP NOTE TEST(S)/RESULTS: Test results from 01/07/2022 include benign mammogram and bone density test showing osteopenia. METHOD OF NOTIFICATION: A message with these results was left on the patient's voicemail. PATIENT COMMENTS: DIAGNOSIS: Benign mammogram and osteopenia. DISCUSSION: I have stressed the importance of getting adequate calcium, vitamin D, and regular exercise. We will plan on repeating the bone density test in 2 years. PLAN: As above.
== END | disposition home or self-care (01) ==
LOC: RADMAMWWP 09:52
PROVIDERS: ATTEND Obstetrics & Gynecology
DX: Z12.31 Encounter for screening mammogram for malignant neoplasm of breast (principal); M85.89 Other specified disorders of bone density and structure, multiple sites; Z78.0 Asymptomatic menopausal state; Z98.890 Other specified postprocedural states
CPT/HCPCS: 77063; 77067; 77080

== ENCOUNTER → 2023-02-25 | Day surgery (SDC) | payer MEDICARE, OTHER ==
[~2023-02-25] MED LIST changes: -ACETAMINOPHEN TAB 500 MG TAB PO STA; +ALPRAZolam 0.25 MG TAB PO PRN; +ALPRAZolam 0.5 MG TAB PO PRN; +ASPIRIN 325 MG TAB PO ONE; -CHLORHEXIDINE GLUCONATE 15 ML CUP MUCOUS MEM ONE; -GABAPENTIN 300 MG CAP PO STA; +HEPARIN SODIUM 1,000 UN/ML (10ML VL) ONE; +HEPARIN SODIUM,PORCINE (1 ML) 2,500 UNIT in SODIUM CHLORIDE 0.9% 250 ML IRRIGATION PRN; +HEPARIN SODIUM,PORCINE 10,000 UNIT in SODIUM CHLORIDE 0.9% 1,000 ML IRRIGATION PRN; -HEPARIN SODIUM,PORCINE 5,000 UNIT/ML 1 ML VIAL SQ ONE; +IOPAMIDOL-370 200ML BTL INJ ONE; +LIDOCAINE 1% INJ 10MG/ML (20 ML MDV) ONE; +LIDOCAINE 1% INJ 10MG/ML (30 ML VIAL-PF) SQ ONE; +MIDAZOLAM 2 MG/2 ML VIAL IVP ONE; +NITROGLYCERIN SL TABS 0.4 MG TAB SUBLINGUAL PRN; +RX INFO: IV CONTRAST WAS GIVEN 1 EACH MISC MISCELLANE PRN; +SODIUM CHLORIDE 0.9% 1,000 ML IV ONE; +SODIUM CHLORIDE 0.9% 1,000 ML IV SCH; +SODIUM CHLORIDE 0.9% 1,000 ML in EMPTY BAG 1 BAG IV SCH; -TAMSULOSIN 0.4 MG CAP.ER.24H PO ONE; +VERAPAMIL 2.5 MG/ML 2 ML AMP ONE; +VERAPAMIL SYRINGE (5 MG/10 ML) INTRAARTER ONE
[2023-02-25 07:25] VITALS: RESP 16; TEMP 98
[2023-02-25] MEDS: HEPARIN SODIUM 1,000 UN/ML (10ML VL) IV ONE ×2 (08:10→08:20)
--- NOTE | 2023-02-25 08:32 | P.PCN ---
Date of Procedure: 02/25/23 Operative Findings: CARDIAC CATHETERIZATION PERFORMING PHYSICIAN: Aniceto Mack MD, RPVI PROCEDURE PERFORMED: 1. Selective right and left coronary angiogram 2. Left heart catheterization 3. iFR of the RCA 4. Ultrasound-guided access of the right radial artery INDICATION: New diagnosis of cardiomyopathy COMPLICATION: None APPROACH: Right radial artery LEVEL OF SEDATION: Moderate with a sedation length of 20 minutes PROCEDURE DESCRIPTION: After obtaining an informed consent, the patient was brought to cardiac brine room laborer. Local anesthesia was performed using lidocaine subcutaneously. The right radial artery was cannulated using Seldinger technique, the guidewire passed easily, following that we advanced a 5-Hungarian sheath dilator assembly, the wire and dilator were removed and sheath was flushed. Following that, 2 mg of verapamil along with 4000 unit heparin were given. Selective right and left coronary angiogram using a 6-Hungarian JR4 and JL 3.5 catheters. Following that we did left heart catheterization using 6-Hungarian pigtail catheter. After that I did iFR of the RCA. After resuming a Doppler wire and equalizing between the Doppler wire and guiding catheter which will JR4 guiding catheter the RCA was engaged and subsequently wired. We did iFR that came in to be 1.00 The procedure was completed there was no complication. SELECTIVE CORONARY ANGIOGRAM: The right coronary artery: Large caliber vessel and a dominant vessel with intermediate lesion involving the distal RCA appears to be in the range of 50% Left main: Is normal. Bifurcates into an LCx and LAD The left circumflex: Large caliber vessel nondominant vessel. Its angiographically normal. Gives rise into the first and second OM and both appeared to be normal The left anterior descending artery: Large caliber vessel. Its angiographically normal. Gives rises into a large diagonal branch which appeared to be normal HEMODYNAMICS: LVEDP was 9 mmHg was no significant gradient across aortic valve CONCLUSION: 1. Intermediate disease involving the RCA. The disease is not flow-limiting by Doppler wire 2. Normal left-sided filling pressure POSTPROCEDURE MANAGEMENT: Medical treatment
[2023-02-25 13:07] VITALS: BP 112/68; PULSE 70
== END ==
LOC: CATHCVL 06:39
PROVIDERS: ATTEND Internal Medicine Interventional Cardiology
DX: I42.9 Cardiomyopathy, unspecified (principal); I73.9 Peripheral vascular disease, unspecified; I38 Endocarditis, valve unspecified; I71.20 Thoracic aortic aneurysm, without rupture, unspecified; Q21.19 Other specified atrial septal defect; I10 Essential (primary) hypertension; E78.5 Hyperlipidemia, unspecified; Z82.49 Family history of ischemic heart disease and other diseases of the circulatory system; Z79.01 Long term (current) use of anticoagulants; Z88.0 Allergy status to penicillin; Z88.2 Allergy status to sulfonamides; Z79.899 Other long term (current) drug therapy
CPT/HCPCS: 93458; C1887; C1769 ×2; C1894; J2250; J2001; J1644; Q9967; 93799